=== PATIENT | female | born 1945 ===

== ENCOUNTER 2017-05-19 13:33 | Inpatient (IN) | payer MEDICARE, MEDICAID ==
--- NOTE | 2017-05-19 16:34 | RAD ---
HISTORY: psychiatric evaluation COMPARISON: 09/26/2015. FINDINGS: LUNGS: The lungs are well inflated. There is redemonstration of moderate pulmonary venous congestion. No focal consolidation. There is bibasilar atelectasis. PLEURA: No significant pleural effusion identified, no pneumothorax apparent. CARDIOVASCULAR: The heart is normal in size. There is prominent central vasculature. OSSEOUS STRUCTURES: No significant abnormalities. VISUALIZED UPPER ABDOMEN: Normal. OTHER FINDINGS: None. IMPRESSION: Persistent central vasculature and pulmonary venous congestion. No active pulmonary disease.
[2017-05-19 16:53] LABS: MEAN CELL VOLUME 92.8 fl (81.0-99.0); MEAN CORPUSCULAR HEMOGLOBIN 30.2 pg (27.0-31.0); MEAN CORPUSCULAR HGB CONC 32.6 g/dL (33.0-37.0); RBC 4.31 Mil/uL (3.80-5.20); RED CELL DISTRIBUTION WIDTH 14.5 % (11.5-14.5)
[2017-05-19 17:09] LABS: ALB/GLOB RATIO 1.1 (1.0-2.1); ALT/SGPT 23 U/L (9-52); AST/SGOT 25 U/L (14-36); BLOOD UREA NITROGEN 18 mg/dl (7-17); CALCIUM 9.8 mg/dL (8.4-10.2); GFR AFRICAN-AMERICAN 60; GFR NON-AFRICAN AMERICAN 49
[2017-05-19 17:12] LABS: BARBITURATES, UR NEGATIVE (NEGATIVE); BENZODIAZEPINES, UR NEGATIVE (NEGATIVE); OPIATES, UR NEGATIVE (NEGATIVE); PHENCYCLIDINE, UR NEGATIVE (NEGATIVE)
[2017-05-19 17:13] LABS: SQUAMOUS EPITHIAL 1 /hpf (0-5); URINE BACTERIA RARE (<OCC); URINE BILIRUBIN NEGATIVE (NEGATIVE); URINE BLOOD SMALL (NEGATIVE); URINE CLARITY CLEAR (Clear); URINE COLOR STRAW (YELLOW); URINE GLUCOSE (UA) NEG (Normal); URINE LEUKOCYTE ESTERASE TRACE Leu/uL (Negative); URINE PROTEIN NEGATIVE (NEGATIVE); URINE UROBILINOGEN 0.2-1.0 mg/dL (0.2-1.0)
[2017-05-19 17:14] LABS: VALPROIC ACID 10.9 ug/mL (50.0-100.0)
--- NOTE | 2017-05-19 17:18 | ED PDOC ---
HPI: Psych/Substance Abuse Time Seen by Provider: 05/19/17 14:07 Chief Complaint (Nursing): Psychiatric Evaluation Chief Complaint (Provider): Denies complaint History Per: Patient, Other History/Exam Limitations: no limitations Onset/Duration Of Symptoms: Days Additional Complaint(s): 71 yo female with history schizophrenia and bipolar sent for evaluation by therapist. PT states that she went to get a re-fill of medications before she left on vacation. When asked where she was going patient states all over the world and she is bringing her entire family because she has a lot of money. Pt also states she cooks a lot of home and can have everyone over for dinner. Son states she has been chain smoking and walking around the streets at night. Past Medical History Reviewed: Historical Data, Nursing Documentation, Vital Signs Vital Signs: Last Vital Signs Temp 98.8 F 05/19/17 13:38 Pulse 80 05/19/17 13:38 Resp 17 05/19/17 13:38 BP 135/96 H 05/19/17 13:38 Pulse Ox 99 05/19/17 13:38 - Medical History PMH: Bipolar Disorder, Depression, Hypothyroidism, Schizophrenia Denies: Asthma, Diabetes, Hepatitis, HIV, HTN, Chronic Kidney Disease, Seizures, Sexually Transmitted Disease - Surgical History Surgical History: Cholecystectomy - Family History Family History: States: Unknown Family Hx - Living Arrangements Living Arrangements: With Family - Social History Current smoker - smoking cessation education provided: No - Immunization History Hx Tetanus Toxoid Vaccination: No Hx Influenza Vaccination: No Hx Pneumococcal Vaccination: No - Home Medications Home Medications: Ambulatory Orders Medication Instructions Recorded Benztropine [Cogentin] 2 mg PO DAILY #0 tab 09/27/15 Divalproex [Depakote DR] 250 mg PO BID@1500,2300 #0 tcp 09/27/15 Levothyroxine [Synthroid] 112 mcg PO DAILY #0 tab 09/27/15 [place] Carbonate [[place] 300 mg PO BID #0 cap 09/27/15 Carbonate 300MG] Metoprolol Tartrate [Lopressor] 50 mg PO BID@0900,2100 #0 tab 09/27/15 Multivit-Min/Iron/Folic/Lutein 1 tab PO DAILY #0 tablet 09/27/15 [Centrum Silver Women Tablet] Rivaroxaban [Xarelto] 15 mg PO Q12 #42 tablet 09/27/15 Zolpidem [Ambien] 10 mg PO HS #0 tab 09/27/15 risperiDONE [RisperDAL Consta] 50 mg IM Q14D #0 syr 09/27/15 - Allergies Allergies/Adverse Reactions: Allergies Allergy/AdvReac Type Severity Reaction Status Date / Time Penicillins Allergy RASH Verified 05/19/17 13:38 Review of Systems ROS Statement: Except As Marked, All Systems Reviewed And Found Negative Constitutional: Negative for: Fever, Chills Psych: Negative for: Depression, Suicidal ideation, Withdrawal Physical Exam - Reviewed Nursing Documentation Reviewed: Yes Vital Signs Reviewed: Yes - Physical Exam Appears: Positive for: Well, Non-toxic, No Acute Distress Head Exam: Positive for: ATRAUMATIC, NORMAL INSPECTION, NORMOCEPHALIC Skin: Positive for: Normal Color, Warm, DRY Eye Exam: Positive for: Normal appearance ENT: Positive for: Normal ENT Inspection Neck: Positive for: Normal, Painless ROM Cardiovascular/Chest: Positive for: Regular Rate, Rhythm Respiratory: Positive for: Normal Breath Sounds. Negative for: Accessory Muscle Use, Respiratory Distress Gastrointestinal/Abdominal: Positive for: Normal Exam Back: Positive for: Normal Inspection Extremity: Positive for: Normal ROM Neurologic/Psych: Positive for: Alert, Oriented - Laboratory Results Result Diagrams: 05/19/17 16:35 05/19/17 16:35 - ECG O2 Sat by Pulse Oximetry: 99 Medical Decision Making Medical Decision Making: Pt evaluated by outside maintenance worker and is going to be screened by [facility]. PT ate dinner in ER. 1845 - Pt singing and dancing in ER. 1945 - Pt laying quietly in bed. No complaints. Endorsed pending [facility] at 1999. Disposition - Clinical Impression Clinical Impression: Encounter for psychiatric assessment - Patient ED Disposition Is Patient to be Admitted: Transfer of Care - Disposition Disposition: Transfer of Care Disposition Time: 20:00 Condition: STABLE Forms: [employer] (Moroccan)
--- NOTE | 2017-05-20 05:39 | ED PDOC ---
- Laboratory Results Result Diagrams: 05/19/17 16:35 05/19/17 16:35 - ECG O2 Sat by Pulse Oximetry: 98 - Progress ED Course And Treament: Case endorsed to food writer from Isac BONILLA [place] [facility] [place] Patient evaluated [place] [facility] [place], meets criteria for commitment pending available bed/transfer Disposition - Clinical Impression Clinical Impression: Schizophrenia - POA Present On Arrival: None - Disposition Disposition: Other Institution [place] Disposition Time: 06:00 Condition: STABLE Patient Signed Over To: Sofiya Santos Handoff Comments: pending available bed/[place] [facility]
--- NOTE | 2017-05-20 11:28 | CARD ---
APPROVED REPORT EKG Measurement Heart [id number] <Conclusion> Normal sinus rhythm Normal ECG
--- NOTE | 2017-05-20 13:33 | ED PDOC ---
- Laboratory Results Result Diagrams: 05/19/17 16:35 05/19/17 16:35 - ECG O2 Sat by Pulse Oximetry: 100 Medical Decision Making Medical Decision Making: received patient from Dr. Santos who is pending transfer to [facility]. Patient has voluntarily signed in to darci here. Will admit. Disposition Doctor Will See Patient In The: Hospital - Clinical Impression Clinical Impression: Schizophrenia - POA Present On Arrival: None - Disposition Disposition: Admitted as In-Patient Disposition Time: 13:33 Condition: STABLE
[2017-05-20 14:13] VITALS: O2SAT 98
[2017-05-20] MEDS ORDERED: Bismuth Subsalicylate 262 mg/15 ml Sus (240 ml) PO PRN (15:10)
[2017-05-20] MEDS ORDERED: Magnesium Hydroxide Susp 30 ml UD PO PRN (15:10)
[2017-05-20] MEDS ORDERED: Alum-Mag Hydrox-Simethicone Susp (30 mL) PO PRN (15:10)
[2017-05-20 15:44] VITALS: BMI 31.5
--- NOTE | 2017-05-20 17:10 | CP.PCM.CON ---
History of Present Illness - History of Present Illness History of Present Illness: 71 yo F pmhx of bipolar disorder, schizophrenia, hypothyroid and a fib presented to 3 voluntarily. She reports recent sad affect. Denies depression, SI/HI/AH/VH. Reports chronic lumbar discomfort, denies recent falls or trauma. Denies: CP/SOB/N/V/dysuria, constipation, diarrhea, CRISTINA, or dizziness. Ambulating well. PCP: Dr. Rosalind Rojas [facility] Psychiatrist: Dr. Duval phmhx: bipolar disorder, schizophrenia, hypothyroid and a fib Psurg: denies Famhx: none soc: lives with grandson; smokes 1 pack per day for 7 years; denies: alcohol or illicit drugs Meds: reviewed on [facility], Depakote, Resperdal, Congentin, Levothyroxine (pt denies taking), Xarelto, Ambien Allergies to PCN: anaphylaxis, rash Review of Systems - Constitutional Constitutional: As Per HPI Past Patient History - Past Medical History & Family History Past Medical History?: Yes - Past Social History Smoking Status: Heavy Smoker > 10 Cigarettes Daily Alcohol: None Drugs: Denies Home Situation {Lives}: With Family - CARDIAC Hx Cardiac Disorders: Yes - PULMONARY Hx Respiratory Disorders: No Hx Asthma: No - NEUROLOGICAL Hx Neurological Disorder: No Hx Seizures: No - HEENT Hx HEENT Problems: No - RENAL Hx Chronic Kidney Disease: No - ENDOCRINE/METABOLIC Hx Endocrine Disorders: No Hx Hypothyroidism: Yes - HEMATOLOGICAL/ONCOLOGICAL Hx Blood Disorders: No Hx Human Immunodeficiency Virus (HIV): No - INTEGUMENTARY Hx Dermatological Problems: No - MUSCULOSKELETAL/RHEUMATOLOGICAL Hx Musculoskeletal Disorders: No Hx Falls: No - GASTROINTESTINAL Hx Gastrointestinal Disorders: No - GENITOURINARY/GYNECOLOGICAL Hx Genitourinary Disorders: No Hx Sexually Transmitted Disorders: No - PSYCHIATRIC Hx Bipolar Disorder: Yes Hx Schizophrenia: Yes Hx Substance Use: No - SURGICAL HISTORY Hx Surgeries: Yes Hx Cholecystectomy: Yes - ANESTHESIA Hx Anesthesia: Yes Hx Anesthesia Reactions: No Hx Malignant Hyperthermia: No Meds Allergies/Adverse Reactions: Allergies Allergy/AdvReac Type Severity Reaction Status Date / Time Penicillins Allergy RASH Verified 05/19/17 13:38 - Medications Medications: Current Medications Acetaminophen (Tylenol 325mg Tab) 650 mg PO Q4 PRN PRN Reason: Pain, moderate (4-7) Al Hydrox/Mg Hydrox/Simethicone (Maalox Plus 30 Ml) 30 ml PO Q4 PRN PRN Reason: Dyspepsia Bismuth Subsalicylate (Pepto-Bismol) 524 mg PO Q4 PRN PRN Reason: Diarrhea Divalproex Sodium (Depakote Dr(*Bid*)) 250 mg PO Q12 OCTAVIO Lorazepam (Ativan) 0.5 mg PO HS PRN PRN Reason: Insomnia Stop: 06/03/17 15:11 Lorazepam (Ativan) 0.5 mg PO Q6 PRN PRN Reason: Anixety/Agitation Stop: 06/03/17 15:11 Magnesium Hydroxide (Milk Of Magnesia) 30 ml PO HS PRN PRN Reason: Constipation Risperidone (Risperdal Tab) 0.5 mg PO Q12 OCTAVIO Physical Exam - Head Exam Head Exam: ATRAUMATIC - Eye Exam Eye Exam: EOMI - Respiratory Exam Respiratory Exam: Clear to Auscultation Bilateral, NORMAL BREATHING PATTERN. absent: Wheezes - Cardiovascular Exam Cardiovascular Exam: REGULAR RHYTHM, +S1, +S2 - GI/Abdominal Exam GI & Abdominal Exam: Normal Bowel Sounds, Soft. absent: Tenderness - Extremities Exam Extremities exam: Positive for: full ROM. Negative for: calf tenderness - Back Exam Back exam: absent: CVA tenderness (L), CVA tenderness (R) - Neurological Exam Neurological exam: Alert, CN II-XII Intact, Normal Gait, Oriented x3 - Psychiatric Exam Psychiatric exam: Normal Affect, Normal Mood Results - Vital Signs Recent Vital Signs: Last Vital Signs Temp 98.2 F 05/20/17 16:38 Pulse 71 05/20/17 16:38 Resp 19 05/20/17 16:38 BP 132/71 05/20/17 16:38 Pulse Ox 98 05/20/17 14:12 - Labs Result Diagrams: 05/19/17 16:35 05/19/17 16:35 Labs: Laboratory Results - last 24 hr 05/19/17 05/19/17 05/19/17 16:35 16:35 16:37 Sodium 148 Potassium 3.9 Chloride 109 H Carbon Dioxide 27 Anion Gap 16 BUN 18 H Creatinine 1.1 Est GFR ( Amer) 60 Est GFR (Non-Af Amer) 49 Random Glucose 74 Calcium 9.8 Total Bilirubin 0.7 AST 25 ALT 23 Alkaline Phosphatase 67 Total Protein 7.8 Albumin 4.0 Globulin 3.8 Albumin/Globulin Ratio 1.1 Urine Color Urine Clarity Urine pH Ur Specific Headrick Urine Protein Urine Glucose (UA) Urine Ketones Urine Blood Urine Nitrate Urine Bilirubin Urine Urobilinogen Ur Leukocyte Esterase Urine RBC (Auto) Urine Microscopic WBC Ur Squamous Epith Cells Urine Bacteria Urine Opiates Screen Negative Urine Methadone Screen Negative Ur Barbiturates Screen Negative Valproic Acid 10.9 L Ur Phencyclidine Scrn Negative Ur Amphetamines Screen Negative U Benzodiazepines Scrn Negative U Oth Cocaine Metabols Negative U Cannabinoids Screen Negative Alcohol, Quantitative < 10 05/19/17 16:37 Sodium Potassium Chloride Carbon Dioxide Anion Gap BUN Creatinine Est GFR ( Amer) Est GFR (Non-Af Amer) Random Glucose Calcium Total Bilirubin AST ALT Alkaline Phosphatase Total Protein Albumin Globulin Albumin/Globulin Ratio Urine Color Straw Urine Clarity Clear Urine pH 6.0 Ur Specific Headrick 1.006 Urine Protein Negative Urine Glucose (UA) Neg Urine Ketones Negative Urine Blood Small Urine Nitrate Negative Urine Bilirubin Negative Urine Urobilinogen 0.2-1.0 Ur Leukocyte Esterase Trace Urine RBC (Auto) 5 H Urine Microscopic WBC 6 H Ur Squamous Epith Cells 1 Urine Bacteria Rare Urine Opiates Screen Urine Methadone Screen Ur Barbiturates Screen Valproic Acid Ur Phencyclidine Scrn Ur Amphetamines Screen U Benzodiazepines Scrn U Oth Cocaine Metabols U Cannabinoids Screen Alcohol, Quantitative Assessment & Plan - Assessment and Plan (Free Text) Plan: 71 yo F pmhx of bipolar disorder, schizophrenia, hypothyroid and a fib presented to voluntarily possibly 2/2 to [facility]. Bipolar schizophrenia: - Currently managed by psych - f/u TSH/FT4 Hypothyroid: - Pt denies taking levothyroxine - f/u TSH/FT4; may restart levothyroxine 100 mcg - monitor vitals Afib - continue home meds xarelto - CXR: persistent central vasculature and pulmonary venous congestion; No active pulmonary disease - EKG: NSR; normal - Continue to monitor DVT prophylaxis - pt ambulating - scd boots
--- NOTE | 2017-05-20 17:47 | PCM.BM ---
<Sandee Ellis - Last Filed: 05/20/17 17:45> Treatment Plan Problems - Problems identified on initial assessmt Altered Sleep Patterns Date Initiated: 05/20/17 Time Initiated: 17:46 Assessment reference: HP, NA Status: Active Medication nonadherence Date Initiated: 05/20/17 Time Initiated: 17:51 Assessment reference: HP, NA Status: Active Treatment assets and liabiliti Patient Assests: adapts well, cooperative, good support system, cognitively intact Patient Liabilities: medical problems, other (mental disorder) - Milieu Protocol Maintain good personal hygiene: daily Encourage regular showers, daily Remind patient to perform daily oral care, daily Assist patient to perform ADL's Conduct patient checks and document Observation sheet: Q15 minutes Maintain personal safety: every shift Educate patient to report safety concerns to staff, every shift Monitor environment for contraband/sharps Medication safety: Monitor for expected outcome, potential side effects: every shift, Assess barriers to learning: every shift, Assess readiness for medication education: every shift <Mili Esteves - Last Filed: 05/21/17 09:53> - Diagnosis (1) Schizoaffective disorder Status: Acute Interventions: Medication management, Individual and group therapy, Psychoeducation 05/21/17 09:53 <Lulu Connors - Last Filed: 05/22/17 15:32> Family Contact Family contact: Patient agrees to contact, Family has been contacted by patient , Patient declines to allow family contact at present Family contact name: Libon - son Family contacted how many times per week?: 2 Family contact comment: [phone] - Outside Agency [facility] Agency contact name: Dr. Junito MD Agency contact number: [phone] - Goals for Treatment Patient goals for treatment: Pt to be encouraged to attend activity and clinical groups 3-5x per week to decrease symptoms of paranoia, delusions and employ reality testing. Pt to be encouraged to participate in group milieu to develop coping skills to reduce psychiatric hospitalizations and further decompensation. Coordinate discharge resources needs by providing referral for psychiatric treatment follow up in the community. Discharge/Continuing Care - Education Needs Education Needs: Family Medication, Family Coping Skills, Family Placement options, Family Community resources, Family Activities of Daily Living, Family Nutrition, Family Health Practices/Safety, Family Personal Hygiene/Grooming, Family Aftercare Safety Plan, Patient Medication, Patient Coping Skills, Patient Placement options, Patient Community resources, Patient Activities of Daily Living, Patient Nutrition, Patient Health Practices/Safety, Patient Personal Hygiene/Grooming, Patient Aftercare Safety Plan - Discharge Discharge Criteria: Tolerates medication w/o severe side effects, Free of paranoid thoughts, Free of agitation, Normal sleep pattern, Ability to care for self, Reduction of target symptoms Discharge to:: Home - Additional Comments 05/22/17 15:25 Pt seen and discussed in team meeting. Reason for hospitalization reviewed and discussed. Pt is tangential and believes she has special rhoades. Pt believes she can see the future and talk to people. Pt is also paranoid; believes that people are breaking into her apartment at night time and stealing her food and medications. Pt's social and medical issues reviewed. Pt's medications reviewed. Tx plan reviewed and discussed with pt Pt agreeable to current tx plan. SW to continue to follow case. - Treatment Team Participation Discussed with Family/SO: Yes (Via telephone) Was Patient/Family/SO present at Treatment Team Meeting: Yes
[2017-05-20] MEDS: Divalproex 250 mg DR(BID formulation) PO SCH (21:01)
[2017-05-21 08:10] LABS: ALB/GLOB RATIO 1.1 (1.0-2.1); ALBUMIN 4.3 g/dL (3.5-5.0); ALT/SGPT 34 U/L (9-52); AST/SGOT 27 U/L (14-36); BLOOD UREA NITROGEN 19 mg/dl (7-17); GFR AFRICAN-AMERICAN > 60; GFR NON-AFRICAN AMERICAN 55; HDL CHOLESTEROL 40 MG/DL (30-70)
[2017-05-21 08:20] LABS: LDL CHOLESTEROL 59 mg/dL (0-129)
[2017-05-21 08:24] LABS: T4 9.69 ug/dl (5.5-11.0)
[2017-05-21] MEDS: Divalproex 250 mg DR(BID formulation) PO SCH (08:25)
--- NOTE | 2017-05-21 10:04 | PCM.PSYCH ---
Initial Psychiatric Evaluation - Initial Psychiatric Evaluation Type of Admission: Voluntary Legal Status: Capacity Chief Complaint (in patient's own words): "My doctor thinks I need to be here." Patient's Reaction to Hospitalization: HPI: 71 yo female w/ h/o schizoaffective disorder, treated by Dr. Duval at the [facility], referred from the clinic due to worsening psychosis, barb, lack of sleep, beliefs that she can communicate with the , paranoia that someone wants to break in her home and sexually assault her, belief that someone is mistaking her for her daughter, seeing "shadows" and beliefs that she has premonitions and can determine if a person is "good" or "bad" just by meeting them in the context of likely non-compliance with medications. PPHx: Multiple past psychiatric admissions, currently being treated with [place] , Depakote, Risperdal and Cogentin at the [facility] w/ Dr. Duval. H/o suicide attempt in 1975 by overdose on alcohol and pills. On VPA 10.9 and L 0.3 PMHx: Hypothyroid, AFib, DVT (on Xarelto) PSurgHx: Cholecystectomy SHx: Lives w/ her son and [id number], +smoke 1.5 ppd, no drugs/etoh; unemployed ALL: PCN (rash) Current Medications: Active Medications Generic Name Dose Route Start Last Admin Trade Name Freq PRN Reason Stop Dose Admin Acetaminophen 650 mg 05/20/17 15:10 Tylenol 325mg Tab PO Q4 PRN Pain, moderate (4-7) Al Hydrox/Mg Hydrox/Simethicone 30 ml 05/20/17 15:10 Maalox Plus 30 Ml PO Q4 PRN Dyspepsia Benztropine Mesylate 0.5 mg 05/21/17 09:00 05/21/17 08:24 Cogentin PO 0.5 mg DAILY OCTAVIO Administration Bismuth Subsalicylate 524 mg 05/20/17 15:10 Pepto-Bismol PO Q4 PRN Diarrhea Divalproex Sodium 250 mg 05/20/17 21:00 05/21/17 08:25 Depez Cole(*Bid*) PO 250 mg Q12 OCTAVIO Administration [place] Carbonate 300 mg 05/20/17 21:00 05/21/17 08:24 [place] Carbonate 300mg PO 300 mg Q12 OCTAVIO Administration Lorazepam 0.5 mg 05/20/17 15:10 Ativan PO 06/03/17 15:11 HS PRN Insomnia Lorazepam 0.5 mg 05/20/17 15:10 Ativan PO 06/03/17 15:11 Q6 PRN Anixety/Agitation Magnesium Hydroxide 30 ml 05/20/17 15:10 Milk Of Magnesia PO HS PRN Constipation Nicotine 1 patch 05/21/17 09:00 05/21/17 08:25 Nicoderm Cq TD 1 patch DAILY OCTAVIO Administration Risperidone 0.5 mg 05/20/17 21:00 05/21/17 08:25 Risperdal Tab PO 0.5 mg Q12 OCTAVIO Administration Rivaroxaban 20 mg 05/21/17 09:00 05/21/17 08:24 Xarelto PO 20 mg DAILY OCTAVIO Administration Protocol Zolpidem Tartrate 5 mg 05/20/17 18:17 Ambien PO HS PRN Insomnia Past Psychiatric History - Past Psychiatric History Previous Treatment History: Partial Hospital Pertinent Medical Hx (Current Medical&Sleep Prob, Allergies): Allergies Allergy/AdvReac Type Severity Reaction Status Date / Time Penicillins Allergy RASH Verified 05/19/17 13:38 Benztropine [Cogentin] 0.5 mg PO DAILY 05/20/17 Divalproex [Depakote DR (*BID*)] 250 mg PO Q12 05/20/17 [place] Carbonate [[facility] Carbonate 300MG] 300 mg PO Q12 05/20/17 Risperidone [Risperdal] 0.5 mg PO Q12 05/20/17 Rivaroxaban [Xarelto] 20 mg PO DAILY 05/20/17 Zolpidem [Ambien] 10 mg PO HS PRN 05/20/17 Review of Systems - Psychiatric Psychiatric: Abnormal Sleep Pattern, Behavioral Changes, Memory Loss, Mood Swings, Paranoia, Visual Hallucinations, Other (Delusions, Barb) Mental Status Examination - Personal Presentation Personal Presentation: Looks stated age - Affect Affect: Broad - Motor Activity Motor Activity: Calm - Reliability in Providing Information Reliability in Providing Information: Fair - Speech Speech: Tangential, Coherent - Mood Mood: Euphoric - Formal Thought Process Formal Thought Process: Delusions, Paranoia, Loosening of associations - Hallucinations/Delusions Additional comments: Denies current AH/VH - Obsessions/Compulsions Obsessions: No Compulsions: No - Cognitive Functions Orientation: Person, Place, Situation, Time Sensorium: Alert Attention/Concentration: Attentive Estimate of Intelligence: Average Judgement: Intact, as evidence by: Insight regarding need for hospitalization Memory: Recent intact, as evidence by: Ability to recall events of the day - Risk Risk: Diminished functioning - Strength & Assets Inventory Strength & Assets Inventory: Cooperative DSM 5 DX - DSM 5 DSM 5 Diagnosis: Schizoaffective Disorder - Recommended/Plan of Treatment Treatment Recommendations and Plan of Treatment: Schizoaffective Disorder -Admit to psychiatry -Hold Depakote -[place] 300 mg PO Q12; will follow-up Li level -Increase Risperdal to 0.5 mg PO AM/ 1 mg PO HS -Continue Cogentin 0.5 mg PO Q12 -Psychology consult to evaluate neurocognitive function -Medicine consult -Psychoeducation -Nicotine patch -Disposition planning Projected ELOS: 5-9 days Discharge Plan and Discharge Criteria: Discharge when patient is psychiatrically stable - Smoking Cessation Smoking Cessation Initiated: Yes
--- NOTE | 2017-05-22 12:43 | PCM.PYCHPN ---
Psychiatric Progress Note - Psychiatric Progress Note Patient seen today, length of contact: Patient evaluated, case discussed with team, chart reviewed Patient Chief Complaint: "My doctor thinks I need to be here." Problems Identified/Issues Discussed: Patient continues to be tangential at times, euphoric w/ beliefs that she has special abilities, such as talking to the . She is also paranoid that drug deals are trying to break into her home to steal her food and medications. She denied acute AH/VH/SI/HI. She has been compliant with medications and denies adverse effects. Entry Level Civil Engineer spoke w/ patient's son, [place], who confirmed that patient has decompensated psychiatrically, that she presents acutely manic and psychotic. We discussed the medication changes. Medication Change: Yes (Increase Risperdal) Medical Record Reviewed: Yes Consults ordered or reviewed: Medicine consult Mental Status Examination - Cognitive Function Orientation: Person, Place, Situation, Time Attention: WNL Concentration: WNL Fund of Knowledge: WNL Decription of patient's judgement and insights: Improving I/J - Mood Mood: Euphoric - Affect Affect: Broad - Formal Thought Process Formal Thought Process: Delusions, Paranoia, Loosening of associations Psychotic Thoughts and Behaviors: +Paranoia/delusions - Suicidal Ideation Suicidal Ideation: No - Homicidal Ideation Homicidal Ideation: No Goal/Treatment Plan - Goal/Treatment Plan Need for Continued Stay: Remain at risks for inpatient hospitalization, Discharge may exacerbated symptoms Progress Toward Problem(s) and Goals/Treatment Plan: Schizoaffective Disorder -Admit to psychiatry -Hold Depakote -Continue [place] 300 mg PO Q12; will follow-up Li level -Increase Risperdal to 1 mg PO Q12 -Continue Cogentin 0.5 mg PO Q12 -Medicine consult -Psychoeducation -Nicotine patch -Disposition planning Estimated Date of D/C: 05/28/17 - Smoking Cessation Smoking Cessation Initiated: Yes
[2017-05-22 17:28] LABS: FOLATE 5.8 ng/mL
[2017-05-23] MEDS: Levothyroxine 25 MCG TAB PO SCH (05:57)
--- NOTE | 2017-05-23 08:49 | PCM.PYCHPN ---
Psychiatric Progress Note - Psychiatric Progress Note Patient seen today, length of contact: Patient evaluated, case discussed with team, chart reviewed Patient Chief Complaint: "My doctor thinks I need to be here." Problems Identified/Issues Discussed: Patient is calmer, more organized, and more linear on conversation. She continues to have paranoia and delusional beliefs. She has been compliant with the medications without adverse effects. Medication Change: No Medical Record Reviewed: Yes Consults ordered or reviewed: Medicine consult Mental Status Examination - Cognitive Function Orientation: Person, Place, Situation, Time Memory: Intact Attention: WNL Concentration: WNL Fund of Knowledge: WNL Decription of patient's judgement and insights: Improving I/J - Mood Mood: Neutral - Affect Affect: Broad - Formal Thought Process Formal Thought Process: Delusions, Paranoia, Loosening of associations Psychotic Thoughts and Behaviors: +Paranoia/delusions - Suicidal Ideation Suicidal Ideation: No - Homicidal Ideation Homicidal Ideation: No Goal/Treatment Plan - Goal/Treatment Plan Need for Continued Stay: Remain at risks for inpatient hospitalization, Discharge may exacerbated symptoms Progress Toward Problem(s) and Goals/Treatment Plan: Schizoaffective Disorder -Continue [place] 300 mg PO Q12; will follow-up Li level -Continue Risperdal 1 mg PO Q12 -Continue Cogentin 0.5 mg PO Q12 -Medicine consult -Psychoeducation -Nicotine patch -Case discussed w/ patient's son -Disposition planning Estimated Date of D/C: 05/28/17
--- NOTE | 2017-05-23 13:32 | CP.PCM.PCO ---
<Lilliam Mark - Last Filed: 05/23/17 13:27> Summary - Summary of Event Summary of Event: S:no overnight event, feeling well. O:Gen: no acute distress, VSS A/P: management per psych, doing well on synthroid <Natalee Driscoll - Last Filed: 05/24/17 08:37> Attending/Attestation - Attestation I have personally seen and examined this patient.: Yes I have fully participated in the care of the patient.: Yes I have reviewed all pertinent clinical information: Yes
[2017-05-24] MEDS: Levothyroxine 25 MCG TAB PO SCH (06:11)
--- NOTE | 2017-05-24 11:22 | PCM.PYCHPN ---
Psychiatric Progress Note - Psychiatric Progress Note Patient seen today, length of contact: Patient evaluated, case discussed with team, chart reviewed Patient Chief Complaint: "My doctor thinks I need to be here." Problems Identified/Issues Discussed: Patient continues to be calmer, more organized, and more linear on conversation. She does sing spontaneously at times, but is not a behavioral disturbance. She is less paranoid. She has been compliant with the medications without adverse effects. Medication Change: No Medical Record Reviewed: Yes Consults ordered or reviewed: Medicine consult Mental Status Examination - Cognitive Function Orientation: Person, Place, Situation, Time Memory: Intact Attention: WNL Concentration: WNL Fund of Knowledge: WNL Decription of patient's judgement and insights: Improving I/J - Mood Mood: Neutral - Affect Affect: Broad - Formal Thought Process Formal Thought Process: Paranoia, Loosening of associations Psychotic Thoughts and Behaviors: +Paranoia - Suicidal Ideation Suicidal Ideation: No - Homicidal Ideation Homicidal Ideation: No Goal/Treatment Plan - Goal/Treatment Plan Need for Continued Stay: Remain at risks for inpatient hospitalization, Discharge may exacerbated symptoms Progress Toward Problem(s) and Goals/Treatment Plan: Schizoaffective Disorder -Continue [place] 300 mg PO Q12; will follow-up Li level -Continue Risperdal 1 mg PO Q12 -Continue Cogentin 0.5 mg PO Q12 -Medicine consult -Psychoeducation -Nicotine patch -Case discussed w/ patient's son -Disposition planning Estimated Date of D/C: 05/28/17
[2017-05-25] MEDS: Levothyroxine 25 MCG TAB PO SCH (06:09)
[2017-05-25 07:38] LABS: HEMOGLOBIN 13.8 g/dL (12.0-16.0); MEAN CORPUSCULAR HEMOGLOBIN 30.2 pg (27.0-31.0); MEAN CORPUSCULAR HGB CONC 32.9 g/dL (33.0-37.0); RBC 4.58 Mil/uL (3.80-5.20); RED CELL DISTRIBUTION WIDTH 14.3 % (11.5-14.5); WHITE BLOOD COUNT 7.4 K/uL (4.8-10.8)
[2017-05-25 07:56] LABS: ALB/GLOB RATIO 1.1 (1.0-2.1); ALBUMIN 4.3 g/dL (3.5-5.0); ALT/SGPT 28 U/L (9-52); AST/SGOT 23 U/L (14-36); BLOOD UREA NITROGEN 24 mg/dl (7-17); CALCIUM 10.5 mg/dL (8.4-10.2); GFR AFRICAN-AMERICAN > 60; GFR NON-AFRICAN AMERICAN 55
--- NOTE | 2017-05-25 09:24 | CP.PCM.CON ---
History of Present Illness - History of Present Illness History of Present Illness: Pt is a 71 year old female admitted to the geropsych unit of [facility]. Pt administered the DRS. On the DRS, pt scored an overall score of 95>. Pt evidenced deficits in all areas. She scored in the Deficient Range on Attention , Construction, Conceptualization, Memory and Initiation tasks. Pt had difficulty processing instructions on evaluation, required redirection and complex material was difficult for her to comprehend. Overall 95 Attention 22 Construction 2 Conceptualization 24 Initiation 24 Memory 12 Supervision for complex activities reccomended. Thank you for this referral, Dr. Walker Past Patient History - Past Medical History & Family History Past Medical History?: Yes - Past Social History Smoking Status: Heavy Smoker > 10 Cigarettes Daily Alcohol: None Drugs: Denies Home Situation {Lives}: With Family - CARDIAC Hx Cardiac Disorders: Yes - PULMONARY Hx Respiratory Disorders: No Hx Asthma: No - NEUROLOGICAL Hx Neurological Disorder: No Hx Seizures: No - HEENT Hx HEENT Problems: No - RENAL Hx Chronic Kidney Disease: No - ENDOCRINE/METABOLIC Hx Endocrine Disorders: No Hx Hypothyroidism: Yes - HEMATOLOGICAL/ONCOLOGICAL Hx Blood Disorders: No Hx Human Immunodeficiency Virus (HIV): No - INTEGUMENTARY Hx Dermatological Problems: No - MUSCULOSKELETAL/RHEUMATOLOGICAL Hx Musculoskeletal Disorders: No Hx Falls: No - GASTROINTESTINAL Hx Gastrointestinal Disorders: No - GENITOURINARY/GYNECOLOGICAL Hx Genitourinary Disorders: No Hx Sexually Transmitted Disorders: No - PSYCHIATRIC Hx Bipolar Disorder: Yes Hx Schizophrenia: Yes Hx Substance Use: No - SURGICAL HISTORY Hx Surgeries: Yes Hx Cholecystectomy: Yes - ANESTHESIA Hx Anesthesia: Yes Hx Anesthesia Reactions: No Hx Malignant Hyperthermia: No Meds Allergies/Adverse Reactions: Allergies Allergy/AdvReac Type Severity Reaction Status Date / Time Penicillins Allergy RASH Verified 05/19/17 13:38 - Medications Medications: Current Medications Acetaminophen (Tylenol 325mg Tab) 650 mg PO Q4 PRN PRN Reason: Pain, moderate (4-7) Al Hydrox/Mg Hydrox/Simethicone (Maalox Plus 30 Ml) 30 ml PO Q4 PRN PRN Reason: Dyspepsia Benztropine Mesylate (Cogentin) 0.5 mg PO Q12 [facility] Last Admin: 05/25/17 08:32 Dose: 0.5 mg Bismuth Subsalicylate (Pepto-Bismol) 524 mg PO Q4 PRN PRN Reason: Diarrhea Levothyroxine Sodium (Synthroid) 25 mcg PO DAILY@0630 [facility] Last Admin: 05/25/17 06:09 Dose: 25 mcg [place] Carbonate ([place] Carbonate 300mg) 300 mg PO Q12 [facility] Last Admin: 05/25/17 08:33 Dose: 300 mg Lorazepam (Ativan) 0.5 mg PO HS PRN PRN Reason: Insomnia Stop: 06/03/17 15:11 Lorazepam (Ativan) 0.5 mg PO Q6 PRN PRN Reason: Anixety/Agitation Stop: 06/03/17 15:11 Magnesium Hydroxide (Milk Of Magnesia) 30 ml PO HS PRN PRN Reason: Constipation Nicotine (Nicoderm Cq) 1 patch TD DAILY [facility] Last Admin: 05/25/17 08:33 Dose: 1 patch Risperidone (Risperdal Tab) 1 mg PO Q12 [facility] Last Admin: 05/25/17 08:33 Dose: 1 mg Rivaroxaban (Xarelto) 20 mg PO DAILY [facility] PRN Reason: Protocol Last Admin: 05/25/17 08:33 Dose: 20 mg Results - Vital Signs Recent Vital Signs: Last Vital Signs Temp 97.3 F L 05/25/17 06:00 Pulse 82 05/25/17 06:00 Resp 19 05/25/17 06:00 BP 119/64 05/25/17 06:00 Pulse Ox 98 05/20/17 14:12 - Labs Result Diagrams: 05/25/17 06:01 05/25/17 06:01 Labs: Laboratory Results - last 24 hr 05/25/17 05/25/17 06:01 06:01 WBC 7.4 RBC 4.58 Hgb 13.8 Hct 42.1 MCV 92.0 MCH 30.2 MCHC 32.9 L RDW 14.3 Plt Count 193 Sodium 148 Potassium 4.7 Chloride 105 Carbon Dioxide 26 Anion Gap 22 H BUN 24 H Creatinine 1.0 Est GFR ( Amer) > 60 Est GFR (Non-Af Amer) 55 Random Glucose 94 Calcium 10.5 H Total Bilirubin 0.6 AST 23 ALT 28 Alkaline Phosphatase 84 Total Protein 8.2 Albumin 4.3 Globulin 3.9 Albumin/Globulin Ratio 1.1
--- NOTE | 2017-05-25 10:43 | PCM.PYCHPN ---
Psychiatric Progress Note - Psychiatric Progress Note Patient seen today, length of contact: Patient evaluated, case discussed with team, chart reviewed Patient Chief Complaint: "My doctor thinks I need to be here." Problems Identified/Issues Discussed: Patient is irritable towards investment underwriter. She states that he does not believe she needs to be in the hospital for more days because she feels that she is doing well. We discussed the importance of compliance with treatment and medications. She is less paranoid and more organized on conversation. Medication Change: No Medical Record Reviewed: Yes Consults ordered or reviewed: Medicine consult Psychology consult Pt is a 71 year old female admitted to the geropsych unit of [facility]. Pt administered the DRS. On the DRS, pt scored an overall score of 95>. Pt evidenced deficits in all areas. She scored in the Deficient Range on Attention , Construction, Conceptualization, Memory and Initiation tasks. Pt had difficulty processing instructions on evaluation, required redirection and complex material was difficult for her to comprehend. Overall 95 Attention 22 Construction 2 Conceptualization 24 Initiation 24 Memory 12 Supervision for complex activities reccomended. Thank you for this referral, Dr. Walker Mental Status Examination - Cognitive Function Orientation: Person, Place, Situation, Time Memory: Intact Attention: WNL Concentration: WNL Fund of Knowledge: WNL Decription of patient's judgement and insights: Improving I/J - Mood Mood: Neutral - Affect Affect: Broad - Formal Thought Process Formal Thought Process: Paranoia, Loosening of associations Psychotic Thoughts and Behaviors: +Paranoia - Suicidal Ideation Suicidal Ideation: No - Homicidal Ideation Homicidal Ideation: No Goal/Treatment Plan - Goal/Treatment Plan Need for Continued Stay: Remain at risks for inpatient hospitalization, Discharge may exacerbated symptoms Progress Toward Problem(s) and Goals/Treatment Plan: Schizoaffective Disorder -Continue [place] 300 mg PO Q12; will follow-up Li level -Continue Risperdal 1 mg PO Q12 -Continue Cogentin 0.5 mg PO Q12 -Medicine consult -Psychoeducation -Nicotine patch -Psychology consult appreciated -Case discussed w/ patient's son -Disposition planning Estimated Date of D/C: 05/28/17
[2017-05-26] MEDS: Levothyroxine 25 MCG TAB PO SCH (06:04)
--- NOTE | 2017-05-26 09:12 | CP.PCM.PN ---
Subjective - Date & Time of Evaluation Date of Evaluation: 05/26/17 Time of Evaluation: 08:00 - Subjective Subjective: Pt was seen and examined at bedside. Denied significant overnight events; Denies CP/dizziness/palpitations/sob/n/v. Tolerating PO diet. Reports good mood and enjoying singing happy, beverly songs. Objective - Vital Signs/Intake and Output Vital Signs (last 24 hours): Temp Pulse Resp BP Pulse Ox 98.1 F 82 19 126/73 98 05/26/17 05:58 05/26/17 05:58 05/26/17 05:58 05/26/17 05:58 05/20/17 14:12 - Medications Medications: Current Medications Acetaminophen (Tylenol 325mg Tab) 650 mg PO Q4 PRN PRN Reason: Pain, moderate (4-7) Al Hydrox/Mg Hydrox/Simethicone (Maalox Plus 30 Ml) 30 ml PO Q4 PRN PRN Reason: Dyspepsia Benztropine Mesylate (Cogentin) 0.5 mg PO Q12 [facility] Last Admin: 05/26/17 08:46 Dose: 0.5 mg Bismuth Subsalicylate (Pepto-Bismol) 524 mg PO Q4 PRN PRN Reason: Diarrhea Levothyroxine Sodium (Synthroid) 25 mcg PO DAILY@0630 [facility] Last Admin: 05/26/17 06:04 Dose: 25 mcg [place] Carbonate ([place] Carbonate 300mg) 300 mg PO Q12 [facility] Last Admin: 05/26/17 08:48 Dose: 300 mg Lorazepam (Ativan) 0.5 mg PO HS PRN PRN Reason: Insomnia Stop: 06/03/17 15:11 Lorazepam (Ativan) 0.5 mg PO Q6 PRN PRN Reason: Anixety/Agitation Stop: 06/03/17 15:11 Magnesium Hydroxide (Milk Of Magnesia) 30 ml PO HS PRN PRN Reason: Constipation Metoprolol Tartrate (Lopressor) 50 mg PO Q12 [facility] Nicotine (Nicoderm Cq) 1 patch TD DAILY [facility] Last Admin: 05/26/17 08:46 Dose: 1 patch Risperidone (Risperdal Tab) 1 mg PO Q12 [facility] Last Admin: 05/26/17 08:48 Dose: 1 mg Rivaroxaban (Xarelto) 20 mg PO DAILY [facility] PRN Reason: Protocol Last Admin: 05/26/17 08:47 Dose: 20 mg - Labs Labs: 05/25/17 06:01 05/25/17 06:01 - Constitutional Appears: Well, No Acute Distress - Eye Exam Eye Exam: EOMI - Neck Exam Neck Exam: Full ROM - Respiratory Exam Respiratory Exam: Clear to Ausculation Bilateral, NORMAL BREATHING PATTERN. absent: Wheezes - Cardiovascular Exam Cardiovascular Exam: Irregular Rhythm, +S1, +S2 - GI/Abdominal Exam GI & Abdominal Exam: Soft, Normal Bowel Sounds. absent: Tenderness - Extremities Exam Extremities Exam: absent: Calf Tenderness - Neurological Exam Neurological Exam: Alert, Awake, CN II-XII Intact, Normal Gait, Oriented x3 - Psychiatric Exam Psychiatric exam: Normal Affect, Normal Mood Assessment and Plan - Assessment and Plan (Free Text) Plan: 71 yo F pmhx of bipolar disorder, schizophrenia, hypothyroid and a fib . Schizoaffective disorder - Currently managed by psych Hypothyroid: - Pt denies taking levothyroxine - f/u TSH/FT4: 13.80/9.69: restarted levothyroxine 25 mcg - monitor vitals Afib - continue home meds xarelto - CXR: persistent central vasculature and pulmonary venous congestion; No active pulmonary disease - EK05/26/2017: Afib with RVR - Checked meds on ECW: Metoprolol succinate 50 mg PO qd for rate control - Continue to monitor Smoking cessation - pt agreed for nicotine patch DVT prophylaxis - pt ambulating - scd boots
--- NOTE | 2017-05-26 09:17 | CARD ---
APPROVED REPORT EKG Measurement Heart [id number] <Conclusion> Atrial fibrillation with rapid ventricular response Abnormal ECG
--- NOTE | 2017-05-26 10:26 | PCM.PYCHPN ---
Psychiatric Progress Note - Psychiatric Progress Note Patient seen today, length of contact: Patient evaluated, case discussed with team, chart reviewed Patient Chief Complaint: "My doctor thinks I need to be here." Problems Identified/Issues Discussed: Patient is improving clinically, she is calmer, less irritable and not expressing any paranoia. She is requesting to be discharged from the hospital because she states that she is feeling better. We discussed likely discharged and the importance of compliance with treatment and medications. No adverse effects to medications reported. Diagnostic Results: Li 0.8 on 05/26/17 Medication Change: No Medical Record Reviewed: Yes Consults ordered or reviewed: Medicine consult Psychology consult Pt is a 71 year old female admitted to the geropsych unit of [facility]. Pt administered the DRS. On the DRS, pt scored an overall score of 95>. Pt evidenced deficits in all areas. She scored in the Deficient Range on Attention , Construction, Conceptualization, Memory and Initiation tasks. Pt had difficulty processing instructions on evaluation, required redirection and complex material was difficult for her to comprehend. Overall 95 Attention 22 Construction 2 Conceptualization 24 Initiation 24 Memory 12 Supervision for complex activities reccomended. Thank you for this referral, Dr. Walker Mental Status Examination - Cognitive Function Orientation: Person, Place, Situation, Time Memory: Intact Attention: WNL Concentration: WNL Fund of Knowledge: WNL Decription of patient's judgement and insights: Improving I/J - Mood Mood: Neutral - Affect Affect: Broad - Speech Speech: Appropriate - Formal Thought Process Formal Thought Process: Loosening of associations Psychotic Thoughts and Behaviors: Denies acute paranoia - Suicidal Ideation Suicidal Ideation: No - Homicidal Ideation Homicidal Ideation: No Goal/Treatment Plan - Goal/Treatment Plan Need for Continued Stay: Discharge may exacerbated symptoms Progress Toward Problem(s) and Goals/Treatment Plan: Schizoaffective Disorder; Dementia -Continue [place] 300 mg PO Q12; Li 0.8 on 05/26/17 -Continue Risperdal 1 mg PO Q12 -Continue Cogentin 0.5 mg PO Q12 -Patient unwilling to take medications for dementia -Medicine consult appreciated -Psychoeducation -Nicotine patch -Psychology consult appreciated -Case discussed w/ patient's son -Disposition planning Estimated Date of D/C: 05/27/17 - Smoking Cessation Smoking Cessation Initiated: Yes
[2017-05-27] MEDS: Levothyroxine 25 MCG TAB PO SCH (06:15)
[2017-05-27] MEDS: Metoprolol Succinate 50 mg XL Tab PO SCH (08:40)
--- NOTE | 2017-05-27 09:37 | PCM.PYCHPN ---
Psychiatric Progress Note - Psychiatric Progress Note Patient seen today, length of contact: Patient evaluated, case discussed with team, chart reviewed Patient Chief Complaint: "My doctor thinks I need to be here." Problems Identified/Issues Discussed: Patient had some irritability yesterday and mild paranoia and will willing to stay an additional day for continued observation and treatment. SW discussed case w/ patient's [id number]. Patient continues to be resistant to making any further medication changes. At this time, she is less irritable, calmer and not expressing acute paranoia. We discussed possible discharge to home tomorrow under the care of her family. We discussed the importance of compliance with treatment and medications. No adverse effects to medications reported. Diagnostic Results: Li 0.8 on 05/26/17 Medication Change: No Medical Record Reviewed: Yes Consults ordered or reviewed: Medicine consult Psychology consult Pt is a 71 year old female admitted to the geropsych unit of [facility] Pt administered the DRS. On the DRS, pt scored an overall score of 95>. Pt evidenced deficits in all areas. She scored in the Deficient Range on Attention , Construction, Conceptualization, Memory and Initiation tasks. Pt had difficulty processing instructions on evaluation, required redirection and complex material was difficult for her to comprehend. Overall 95 Attention 22 Construction 2 Conceptualization 24 Initiation 24 Memory 12 Supervision for complex activities reccomended. Thank you for this referral, Dr. Walker Mental Status Examination - Cognitive Function Orientation: Person, Place, Situation, Time Memory: Intact Attention: WNL Concentration: WNL Fund of Knowledge: WNL Decription of patient's judgement and insights: Improving I/J - Mood Mood: Neutral - Affect Affect: Broad - Speech Speech: Appropriate - Formal Thought Process Formal Thought Process: Loosening of associations Psychotic Thoughts and Behaviors: Denies acute paranoia - Suicidal Ideation Suicidal Ideation: No - Homicidal Ideation Homicidal Ideation: No Goal/Treatment Plan - Goal/Treatment Plan Need for Continued Stay: Discharge may exacerbated symptoms Progress Toward Problem(s) and Goals/Treatment Plan: Schizoaffective Disorder; Dementia -Continue [place] 300 mg PO Q12; Li 0.8 on 05/26/17 -Continue Risperdal 1 mg PO Q12 -Continue Cogentin 0.5 mg PO Q12 -Patient unwilling to take medications for dementia -Medicine consult appreciated -Psychoeducation -Nicotine patch -Psychology consult appreciated -Case discussed w/ patient's son (POA) and [id number] -Disposition planning- likely discharge to home tomorrow Estimated Date of D/C: 05/28/17
[2017-05-27 15:42] VITALS: RESP 19
[2017-05-28] MEDS: Levothyroxine 25 MCG TAB PO SCH (05:57)
[2017-05-28 06:04] VITALS: BP 137/88; PULSE 79; TEMP 97.4
[2017-05-28] MEDS: Metoprolol Succinate 50 mg XL Tab PO SCH (09:15)
--- NOTE | 2017-05-28 10:31 | PCM.PYCHDC ---
Mental Status Examination - Mental Status Examination Orientation: Person, Place, Situation, Time Memory: Impaired Mood: Neutral Affect: Broad Speech: Appropriate Association: WNL Fund of Knowledge: WNL Formal Thought Process: No Impairment Description of patient's judgement and insight: Poor I/ Fair J Psychotic Thoughts and Behaviors: NO AH/VH/paranoia Suicidal Ideation: No Current Homicidal Ideation?: No Discharge Summary - Discharge Note Reason for Hospitalization: HPI: 71 yo female w/ h/o schizoaffective disorder, treated by Dr. Duval at the [facility], referred from the clinic due to worsening psychosis, carin, lack of sleep, beliefs that she can communicate with the , paranoia that someone wants to break in her home and sexually assault her, belief that someone is mistaking her for her daughter, seeing "shadows" and beliefs that she has premonitions and can determine if a person is "good" or "bad" just by meeting them in the context of likely non-compliance with medications. PPHx: Multiple past psychiatric admissions, currently being treated with [place] , Depakote, Risperdal and Cogentin at the [facility] w/ Dr. Duval. H/o suicide attempt in 1975 by overdose on alcohol and pills. On VPA 10.9 and L 0.3 PMHx: Hypothyroid, AFib, DVT (on Xarelto) PSurgHx: Cholecystectomy SHx: Lives w/ her son and [id number], +smoke 1.5 ppd, no drugs/etoh; unemployed ALL: PCN (rash) Laboratory Data: Li 0.8 on 05/26/17 Consultations:: List each consultation separately and include: 1. Reason for request. 2. Findings. 3. Follow-up Consultations: Medicine consult Psychology consult Pt is a 71 year old female admitted to the geropsych unit of [facility]. Pt administered the DRS. On the DRS, pt scored an overall score of 95>. Pt evidenced deficits in all areas. She scored in the Deficient Range on Attention , Construction, Conceptualization, Memory and Initiation tasks. Pt had difficulty processing instructions on evaluation, required redirection and complex material was difficult for her to comprehend. Overall 95 Attention 22 Construction 2 Conceptualization 24 Initiation 24 Memory 12 Supervision for complex activities reccomended. Thank you for this referral, Dr. Walker Summary of Hospital Course include:: 1. Description of specific treatment plan utilized for patients during their course of treatmen. 2. Summarize the time- course for resolution of acute symptoms and/or regressed behaviors. 3. Describe issues identified and worked on during hospitalization. 4. Describe medication utilized. 5. Describe medical problems identified and treated. 6. Reassessment of suicide risk Summary of Hospital Course: Patient was admitted to the geriatic psychiatry unit. Individual and group therapy were provided. Patient was stabilized on Risperdal 1 mg PO Q12, Cogentin 0.5 mg PO Q12 and [place] 300 mg PO Q12 (Li 0.8 on 05/26/17). The Depakote was stopped. Patient was also evaluated by the psychologist and underwent neuropsych testing, which determined that the patient has Dementia. She was not agreeable to any further changes of her psychiatric medications or treatment for dementia because she does not agree that she has dementia. Patient is currently psychiatrically stable for discharge with continued outpatient psychiatric treatment. She is agreeable to adult day care referral. Case was discussed w/ patient's family. She will return under the care of her family and her [id number] will be her home health aide. - Diagnosis (1) Schizoaffective disorder Current Visit: Yes Status: Chronic (2) Dementia Current Visit: Yes Status: Chronic - Final Diagnosis (DSM 5) Condition upon Discharge: STABLE DSM 5: Schizoaffective Disorder; Dementia Disposition: HOME/ ROUTINE Follow-up Treatment Plan: Schizoaffective Disorder; Dementia -Continue [place] 300 mg PO Q12; Li 0.8 on 05/26/17 -Continue Risperdal 1 mg PO Q12 -Continue Cogentin 0.5 mg PO Q12 -Patient unwilling to take medications for dementia -Medicine consult appreciated -Psychoeducation -Nicotine patch -Psychology consult appreciated -Case discussed w/ patient's son (POA) and [id number] -Disposition planning- discharge to home w/ outpatient psychiatric follow-up and adult day care Prescriptions/Medication Reconciliation: Benztropine [Cogentin] 0.5 mg PO Q12 #60 tab Levothyroxine [Synthroid] 25 mcg PO DAILY@0630 #30 tab [place] Carbonate [[place] Carbonate 300MG] 300 mg PO Q12 #60 cap Metoprolol Succinate [Toprol XL] 50 mg PO DAILY #50 tab risperiDONE [RisperDAL Tab] 1 mg PO Q12 #60 tab - Smoking Cessation Smoking Cessation Medication prescribed: Yes Reason for not providing: Nicotine patch given during admission, refused prescription - Antipsychotic Medications Pt discharged on 2 or more routine antipsychotic medications: No
== END 2017-05-28 13:45 | disposition home or self-care (01) | DRG 885 ==
LOC: H.ER 13:33 → H.ERHOLD 05-20 13:26 → H.STEP 05-20 15:40
PROVIDERS: ADMIT Psychiatry & Neurology Psychiatry; ATTEND Psychiatry & Neurology Psychiatry
PROC: GZHZZZZ Group Psychotherapy (ICD-10-PCS; principal; 2017-05-20)
PROC: GZ58ZZZ Individual Psychotherapy, Cognitive-Behavioral (ICD-10-PCS; 2017-05-20)
DX: F25.9 Schizoaffective disorder, unspecified (principal); I48.1 Persistent atrial fibrillation; F03.90 Unspecified dementia, unspecified severity, without behavioral disturbance, psychotic disturbance, mood disturbance, and anxiety; F31.9 Bipolar disorder, unspecified; E03.9 Hypothyroidism, unspecified; F17.210 Nicotine dependence, cigarettes, uncomplicated; Z91.5 Personal history of self-harm; Z79.01 Long term (current) use of anticoagulants; Z86.718 Personal history of other venous thrombosis and embolism; Z88.0 Allergy status to penicillin; Z90.49 Acquired absence of other specified parts of digestive tract

== ENCOUNTER 2017-08-12 01:30 | Inpatient (IN) | payer MEDICARE, MEDICAID ==
[2017-08-12 01:30] VITALS: BMI 31.5
--- NOTE | 2017-08-12 02:11 | ED PDOC ---
HPI: Psych/Substance Abuse Time Seen by Provider: 08/12/17 01:36 Chief Complaint (Nursing): Psychiatric Evaluation Chief Complaint (Provider): Psychiatric Evaluation ED Caveat: Uncooperative History Per: Patient History/Exam Limitations: other (Uncooperative) Current Symptoms Are (Timing): Still Present Suicide/Self Injury Attempted (Context): Other (Turning on all gas burners) Associated Symptoms: Suicidal Plan Additional Complaint(s): 71 year old female brought in by mobile crisis presents to ED for a psychiatric evaluation and has a past medical history of schizophrenia, AFIB, DVT, and schizoaffective disorder. Crisis states patient left all of the gas burners on in her house since yesterday evening. Patient refuses to answer any questions. PCP: Past Medical History Reviewed: Historical Data, Nursing Documentation, Vital Signs Vital Signs: Last Vital Signs Temp 97.9 F 08/12/17 01:40 Pulse 81 08/12/17 01:40 Resp 16 08/12/17 01:40 BP 135/80 08/12/17 01:40 Pulse Ox 99 08/12/17 01:40 - Medical History PMH: Bipolar Disorder, Depression, Hypothyroidism, Schizophrenia Denies: Asthma, Diabetes, Hepatitis, HIV, HTN, Chronic Kidney Disease, Seizures, Sexually Transmitted Disease - Surgical History Surgical History: Cholecystectomy - Family History Family History: States: Unknown Family Hx - Immunization History Hx Tetanus Toxoid Vaccination: No Hx Influenza Vaccination: No Hx Pneumococcal Vaccination: No - Home Medications Home Medications: Ambulatory Orders Medication Instructions Recorded Rivaroxaban [Xarelto] 20 mg PO DAILY 05/20/17 Benztropine [Cogentin] 0.5 mg PO Q12 #60 tab 05/26/17 Levothyroxine [Synthroid] 25 mcg PO DAILY@0630 #30 tab 05/26/17 Van Carbonate [Van 300 mg PO Q12 #60 cap 05/26/17 Carbonate 300MG] risperiDONE [RisperDAL Tab] 1 mg PO Q12 #60 tab 05/26/17 Metoprolol Succinate XL [Toprol XL] 50 mg PO DAILY #50 tab 05/27/17 - Allergies Allergies/Adverse Reactions: Allergies Allergy/AdvReac Type Severity Reaction Status Date / Time Penicillins Allergy RASH Verified 05/19/17 13:38 Review of Systems Review Of Systems: ROS cannot be obtained secondary to pt's inabilty to answer questions. (Patient refuses to answer questions) Physical Exam - Reviewed Nursing Documentation Reviewed: Yes Vital Signs Reviewed: Yes - Physical Exam Appears: Positive for: Non-toxic, No Acute Distress Skin: Positive for: Normal Color, Warm, Dry Cardiovascular/Chest: Positive for: Regular Rate, Rhythm. Negative for: Murmur Respiratory: Positive for: Normal Breath Sounds. Negative for: Respiratory Distress Gastrointestinal/Abdominal: Positive for: Normal Exam, Soft. Negative for: Tenderness Extremity: Positive for: Normal ROM. Negative for: Deformity Neurologic/Psych: Positive for: Alert, Oriented, Mood/Affect (flat affect). Negative for: Motor/Sensory Deficits - Laboratory Results Result Diagrams: 08/12/17 02:05 08/12/17 02:05 - ECG ECG: Positive for: Interpreted By Me, Viewed By Me ECG Rhythm: Positive for: Normal QRS, Normal ST Segment, Sinus Rhythm Rate: 78 (01:59 08/12/17) O2 Sat by Pulse Oximetry: 99 (RA) Pulse Ox Interpretation: Normal Medical Decision Making Medical Decision Makin Initial impression: 71 year old female with suicidal ideation in setting of known schizoaffective disorder Initial plan: * EKG * EtOH serum * Labs * UDrug screen * Van * Crisis eval * 1:1 OBS * UA 0215 Labs reviewed: no clinically significant abnormalities. 0239 Patient evaluated by crisis and will be admitted under Dr. Esteves (INPATIENT ADULT PSYCH) for schizoaffective disorder. Patient is medically cleared for admission. Scribe Attestation: Documented by Kailyn Warren acting as a scribe for James Dumas MD. Scribe Attestation: All medical record entries made by the Scribe were at my direction and personally dictated by me. I have reviewed the chart and agree that the record accurately reflects my personal performance of the history, physical exam, medical decision making, and the department course for this patient. I have also personally directed, reviewed, and agree with the discharge instructions and disposition. Disposition - Clinical Impression Clinical Impression: Schizoaffective disorder - Patient ED Disposition Is Patient to be Admitted: Yes - Disposition Disposition Time: 02:39 Condition: STABLE - Pt Status Changed To: Hospital Disposition Of: Inpatient (INPATIENT) - Admit Certification Admit to Inpatient:: After my assessment, the patient will require hospitalization for at least two midnights. This is because of the severity of symptoms shown, intensity of services needed, and/or the medical risk in this patient being treated as an outpatient.
[2017-08-12 02:20] LABS: BASO % 0.7 % (0.0-2.0); EOS # 0.1 K/uL (0.0-0.7); HEMOGLOBIN 12.8 g/dL (12.0-16.0); LYMPH # 1.3 K/uL (1.0-4.3); LYMPH % 19.9 % (20.0-40.0); MEAN CELL VOLUME 89.4 fl (81.0-99.0); MEAN CORPUSCULAR HGB CONC 32.4 g/dL (33.0-37.0); MEAN PLATELET VOLUME 7.9 fl (7.2-11.7); MONO # 0.4 K/uL (0.0-0.8); MONO % 6.8 % (0.0-10.0); NEUT # 4.4 K/uL (1.8-7.0); NEUT % 70.6 % (50.0-75.0); NRBC % 0.1 % (0.0-0.0); RBC 4.43 Mil/uL (3.80-5.20); RED CELL DISTRIBUTION WIDTH 15.9 % (11.5-14.5); WHITE BLOOD COUNT 6.3 K/uL (4.8-10.8)
[2017-08-12 02:34] LABS: ALB/GLOB RATIO 1.1 (1.0-2.1); ALBUMIN 4.1 g/dL (3.5-5.0); ALT/SGPT 17 U/L (9-52); AST/SGOT 23 U/L (14-36); BLOOD UREA NITROGEN 14 mg/dl (7-17); CALCIUM 9.8 mg/dL (8.4-10.2); GFR AFRICAN-AMERICAN 54; GFR NON-AFRICAN AMERICAN 45
[2017-08-12 03:04] LABS: SQUAMOUS EPITHIAL 2 /hpf (0-5); URINE BILIRUBIN NEGATIVE (NEGATIVE); URINE BLOOD NEGATIVE (NEGATIVE); URINE CLARITY CLEAR (Clear); URINE COLOR STRAW (YELLOW); URINE GLUCOSE (UA) NEG (Normal); URINE LEUKOCYTE ESTERASE SMALL Leu/uL (Negative); URINE PROTEIN NEGATIVE (NEGATIVE); URINE UROBILINOGEN 0.2-1.0 mg/dL (0.2-1.0)
[2017-08-12 03:30] LABS: BARBITURATES, UR NEGATIVE (NEGATIVE); BENZODIAZEPINES, UR NEGATIVE (NEGATIVE); OPIATES, UR NEGATIVE (NEGATIVE); PHENCYCLIDINE, UR NEGATIVE (NEGATIVE)
[2017-08-12] MEDS ORDERED: Alum-Mag Hydrox-Simethicone Susp (30 mL) PO PRN (04:14)
[2017-08-12] MEDS ORDERED: Magnesium Hydroxide Susp 30 ml UD PO PRN (04:14)
[2017-08-12] MEDS ORDERED: Bismuth Subsalicylate 262 mg/15 ml Sus (240 ml) PO PRN (04:14)
[2017-08-12 04:31] VITALS: O2SAT 99
--- NOTE | 2017-08-12 05:00 | PCM.BM ---
<Keyla Christopher - Last Filed: 08/12/17 04:58> Treatment Plan Problems - Problems identified on initial assessmt Delusions Date Initiated: 08/12/17 Time Initiated: 04:59 Assessment reference: NA Status: Active Medication nonadherence Date Initiated: 08/12/17 Time Initiated: 04:59 Assessment reference: NA Status: Active Treatment assets and liabiliti Patient Assests: adapts well, cooperative, good support system, cognitively intact Patient Liabilities: other (non compliant with medication) - Milieu Protocol Maintain good personal hygiene: daily Encourage regular showers, daily Remind patient to perform daily oral care, daily Assist patient to perform ADL's Conduct patient checks and document Observation sheet: Q15 minutes Maintain personal safety: every shift Educate patient to report safety concerns to staff, every shift Monitor environment for contraband/sharps Medication safety: Monitor for expected outcome, potential side effects: every shift, Assess barriers to learning: every shift, Assess readiness for medication education: every shift <Mili Esteves - Last Filed: 08/12/17 08:36> - Diagnosis (1) Schizoaffective disorder Status: Chronic Interventions: Medication management, Individual and group therapy, Psychoeducation 08/12/17 08:36 <Lulu Connors M - Last Filed: 08/12/17 12:21> Family Contact Family involvement: Patient does not wish Family/SO involvement Family contact: Family contacted unit to give information (Pt's daughter in law , Domitila spoke with nurse group fitness manager, Maryellen Corbett) - Outside Agency [facility] Care involvment: Information-sharing (Reportedly, pt has been non-compliant with her scheduled apointments) Agency contact name: Dr. Mukund MD Agency contact number: [phone] Discharge/Continuing Care - Education Needs Education Needs: Family Medication, Family Diagnosis/Disease Process, Family Coping Skills, Family Placement options, Family Community resources, Family Activities of Daily Living, Family Health Practices/Safety, Family Personal Hygiene/Grooming, Family Aftercare Safety Plan, Patient Medication, Patient Diagnosis/Disease Process, Patient Coping Skills, Patient Placement options, Patient Community resources, Patient Activities of Daily Living, Patient Health Practices/Safety, Patient Personal Hygiene/Grooming, Patient Aftercare Safety Plan - Discharge Discharge Criteria: Tolerates medication w/o severe side effects, Free of paranoid thoughts, Free of agitation, Normal sleep pattern, Ability to care for self, Reduction of target symptoms Discharge to:: Home - Additional Comments 08/12/17 12:02 Pt seen and discussed in team meeting. Reason for hospitalization reviewed. Pt reported that the police brought her to the hospital. Reportedly, pt was referred to the ED BY [facility] Mobile Crisis. Pt reported that her daughter, Alber is "my enemy" and she was the person who called the police. Pt also reported that she is in the hospital so that her family can have a libertarian in her apartment without her presence. Attending psychiatrist inquired about the the bizarre bx's in the community such as, inappropriately dressed, bringing strangers to her home (homeless) and paranoid thought process. Pt reported that she is not inappropriately dressed, but rather "dressing sexy and they like what they see." Pt reported medication non-compliance. Pt also reported that she believes she can predict the future. Pt's medications reviewed. Attending physician will re-start previous medications pt was prescribed in May 2017. Pt 's social and medical issues reviewed. Heat Reader inquired about consent for collateral review. Pt refused to sign release form for information to her grandson, son ([place]), daughter in law (Domitila) and daughter (Alber). Pt stated "they my enemy." Heat Reader inquired about [id number], Domitila and pt stated "she has to do what the says." Heat Reader inquired about [facility] and pt reported "I give permission but no sign nothing." SW to continue to follow case. - Treatment Team Participation Discussed with Family/SO: No Was Patient/Family/SO present at Treatment Team Meeting: Yes
[2017-08-12 07:06] LABS: IRON 40 ug/dL (37-170)
[2017-08-12 07:17] LABS: % IRON SATURATION 11 % (20-55); TOTAL IRON BINDING CAPACITY 380 ug/dL (250-450)
[2017-08-12 07:28] LABS: T4 8.6 ug/dl (5.5-11.0)
[2017-08-12 07:46] LABS: FERRITIN 36.2 ng/Ml (11.1-264.0)
[2017-08-12] MEDS: Metoprolol Succinate 50 mg XL Tab PO SCH (08:32)
--- NOTE | 2017-08-12 08:34 | RAD ---
HISTORY: admit COMPARISON: 05/19/2017, 09/26/2015 and 02/15/2014 TECHNIQUE: Chest PA and lateral FINDINGS: LUNGS: No consolidation. PLEURA: No significant pleural effusion identified. No pneumothorax apparent. CARDIOVASCULAR: Cardiomegaly -right ventricular prominence and prominent central pulmonary vasculature - both findings are multiyear stable. Central pulmonary arterial hypertension is a consideration. OSSEOUS STRUCTURES: Thoracic spondylosis. VISUALIZED UPPER ABDOMEN: Normal. OTHER FINDINGS: None. IMPRESSION: Multiyear stable appearing cardiomegaly (right ventricle more than left) with prominent central pulmonary vasculature -pulmonary arterial hypertension -suspect No interval imaging pathology noted
--- NOTE | 2017-08-12 08:37 | CP.PCM.CON ---
<Syed Bobo - Last Filed: 08/12/17 11:34> History of Present Illness - History of Present Illness History of Present Illness: This is 71 y/o F with PMH of bipolar disorder, schizophrenia, hypothyroid and A- fib admitted to for evaluation and treatment of schizophrenia. Patient reports improved mood this morning, Denies depression, suicidal or homicidal ideation. Reports chronic lumbar discomfort, denies recent falls or trauma. Denies: Chest pain/SOB/N/V/dysuria/f, constipation, diarrhea, or dizziness. Ambulating well, tolerating PO intake, no flat effect.Patient denies any cold/ Hot intolerance. PMD: Dr. Rosalind Rojas/ [facility] Psychiatrist: Dr. Duval PMH: bipolar disorder, schizophrenia, hypothyroid and a fib PSH: partial cholecystectomy 4 years ago Allg: PCN: anaphylaxis, rash FM: Decreased parents, unknown SH: lives with grandson; smokes 1 pack per day since long time; denies: alcohol or illicit drugs Meds: reviewed on [facility] -Iselin, Depakote, Resperdal, Congentin, Levothyroxine (pt denies taking), Xarelto, Ambien, Metoprolol ROS: As HPI Past Patient History - Past Medical History & Family History Past Medical History?: Yes - Past Social History Smoking Status: Heavy Smoker > 10 Cigarettes Daily - CARDIAC Hx Hypertension: No - PULMONARY Hx Asthma: No - NEUROLOGICAL Hx Seizures: No - HEENT Hx HEENT Problems: No - RENAL Hx Chronic Kidney Disease: No - ENDOCRINE/METABOLIC Hx Hypothyroidism: Yes - HEMATOLOGICAL/ONCOLOGICAL Hx Human Immunodeficiency Virus (HIV): No - INTEGUMENTARY Hx Dermatological Problems: No - MUSCULOSKELETAL/RHEUMATOLOGICAL Hx Musculoskeletal Disorders: No - GASTROINTESTINAL Hx Gastrointestinal Disorders: No - GENITOURINARY/GYNECOLOGICAL Hx Sexually Transmitted Disorders: No - PSYCHIATRIC Hx Bipolar Disorder: Yes Hx Depression: Yes Hx Schizophrenia: Yes - SURGICAL HISTORY Hx Cholecystectomy: Yes - ANESTHESIA Hx Anesthesia: Yes Hx Anesthesia Reactions: No Hx Malignant Hyperthermia: No Meds Allergies/Adverse Reactions: Allergies Allergy/AdvReac Type Severity Reaction Status Date / Time Penicillins Allergy RASH Verified 05/19/17 13:38 - Medications Medications: Current Medications Acetaminophen (Tylenol 325mg Tab) 650 mg PO Q4 PRN PRN Reason: Pain, moderate (4-7) Al Hydrox/Mg Hydrox/Simethicone (Maalox Plus 30 Ml) 30 ml PO Q4 PRN PRN Reason: Dyspepsia Benztropine Mesylate (Cogentin) 0.5 mg PO Q12 [facility] Bismuth Subsalicylate (Pepto-Bismol) 524 mg PO Q4 PRN PRN Reason: Diarrhea Levothyroxine Sodium (Synthroid) 100 mcg PO DAILY@0630 [facility] Iselin Carbonate (Iselin Carbonate 300mg) 300 mg PO Q12 [facility] Lorazepam (Ativan) 0.5 mg PO HS PRN PRN Reason: Insomnia Stop: 08/26/17 04:15 Lorazepam (Ativan) 0.5 mg PO Q6 PRN PRN Reason: Anixety/Agitation Stop: 08/26/17 04:15 Magnesium Hydroxide (Milk Of Magnesia) 30 ml PO HS PRN PRN Reason: Constipation Metoprolol Succinate (Toprol Xl) 50 mg PO DAILY [facility] Last Admin: 08/12/17 08:32 Dose: 50 mg Risperidone (Risperdal Tab) 1 mg PO Q12 [facility] Rivaroxaban (Xarelto) 20 mg PO DAILY [facility] PRN Reason: Protocol Last Admin: 08/12/17 08:32 Dose: 20 mg Results - Vital Signs Recent Vital Signs: Last Vital Signs Temp 98.4 F 08/12/17 06:00 Pulse 81 08/12/17 08:32 Resp 19 08/12/17 06:00 BP 129/81 08/12/17 08:32 Pulse Ox 99 08/12/17 04:30 - Labs Result Diagrams: 08/12/17 02:05 08/12/17 02:05 Labs: Laboratory Results - last 24 hr 08/12/17 08/12/17 08/12/17 01:50 01:50 02:05 WBC RBC Hgb Hct MCV MCH MCHC RDW Plt Count MPV Neut % (Auto) Lymph % (Auto) Rolette % (Auto) Eos % (Auto) Baso % (Auto) Neut # (Auto) Lymph # (Auto) Rolette # (Auto) Eos # (Auto) Baso # (Auto) Sodium 146 Potassium 4.0 Chloride 111 H Carbon Dioxide 26 Anion Gap 13 BUN 14 Creatinine 1.2 Est GFR ( Amer) 54 Est GFR (Non-Af Amer) 45 Random Glucose 95 Calcium 9.8 Iron TIBC % Saturation Ferritin Total Bilirubin 1.1 AST 23 ALT 17 Alkaline Phosphatase 74 Total Protein 7.6 Albumin 4.1 Globulin 3.6 Albumin/Globulin Ratio 1.1 Triglycerides Cholesterol LDL Cholesterol Direct HDL Cholesterol Vitamin B12 Free T4 Thyroxine (T4) TSH 3rd Generation Urine Color Straw Urine Clarity Clear Urine pH 7.0 Ur Specific Benezett < 1.005 Urine Protein Negative Urine Glucose (UA) Neg Urine Ketones Negative Urine Blood Negative Urine Nitrate Negative Urine Bilirubin Negative Urine Urobilinogen 0.2-1.0 Ur Leukocyte Esterase Small Urine RBC (Auto) 2 Urine Microscopic WBC 5 Ur Squamous Epith Cells 2 Urine Opiates Screen Negative Urine Methadone Screen Negative Ur Barbiturates Screen Negative Ur Phencyclidine Scrn Negative Ur Amphetamines Screen Negative U Benzodiazepines Scrn Negative Iselin U Oth Cocaine Metabols Negative U Cannabinoids Screen Negative Alcohol, Quantitative < 10 08/12/17 08/12/17 08/12/17 02:05 02:05 06:05 WBC 6.3 RBC 4.43 Hgb 12.8 Hct 39.6 MCV 89.4 D MCH 29.0 MCHC 32.4 L RDW 15.9 H Plt Count 197 MPV 7.9 Neut % (Auto) 70.6 Lymph % (Auto) 19.9 L Rolette % (Auto) 6.8 Eos % (Auto) 2.0 Baso % (Auto) 0.7 Neut # (Auto) 4.4 Lymph # (Auto) 1.3 Rolette # (Auto) 0.4 Eos # (Auto) 0.1 Baso # (Auto) 0.0 Sodium Potassium Chloride Carbon Dioxide Anion Gap BUN Creatinine Est GFR ( Amer) Est GFR (Non-Af Amer) Random Glucose Calcium Iron TIBC % Saturation Ferritin 36.2 Total Bilirubin AST ALT Alkaline Phosphatase Total Protein Albumin Globulin Albumin/Globulin Ratio Triglycerides 97 D Cholesterol 126 LDL Cholesterol Direct 49 HDL Cholesterol 38 Vitamin B12 234 L Free T4 Thyroxine (T4) 8.60 TSH 3rd Generation 7.81 H Urine Color Urine Clarity Urine pH Ur Specific Benezett Urine Protein Urine Glucose (UA) Urine Ketones Urine Blood Urine Nitrate Urine Bilirubin Urine Urobilinogen Ur Leukocyte Esterase Urine RBC (Auto) Urine Microscopic WBC Ur Squamous Epith Cells Urine Opiates Screen Urine Methadone Screen Ur Barbiturates Screen Ur Phencyclidine Scrn Ur Amphetamines Screen U Benzodiazepines Scrn Iselin 0.4 L U Oth Cocaine Metabols U Cannabinoids Screen Alcohol, Quantitative 08/12/17 08/12/17 06:05 06:05 WBC RBC Hgb Hct MCV MCH MCHC RDW Plt Count MPV Neut % (Auto) Lymph % (Auto) Rolette % (Auto) Eos % (Auto) Baso % (Auto) Neut # (Auto) Lymph # (Auto) Rolette # (Auto) Eos # (Auto) Baso # (Auto) Sodium Potassium Chloride Carbon Dioxide Anion Gap BUN Creatinine Est GFR ( Amer) Est GFR (Non-Af Amer) Random Glucose Calcium Iron 40 TIBC 380 % Saturation 11 L Ferritin Total Bilirubin AST ALT Alkaline Phosphatase Total Protein Albumin Globulin Albumin/Globulin Ratio Triglycerides Cholesterol LDL Cholesterol Direct HDL Cholesterol Vitamin B12 Free T4 1.00 Thyroxine (T4) TSH 3rd Generation Urine Color Urine Clarity Urine pH Ur Specific Benezett Urine Protein Urine Glucose (UA) Urine Ketones Urine Blood Urine Nitrate Urine Bilirubin Urine Urobilinogen Ur Leukocyte Esterase Urine RBC (Auto) Urine Microscopic WBC Ur Squamous Epith Cells Urine Opiates Screen Urine Methadone Screen Ur Barbiturates Screen Ur Phencyclidine Scrn Ur Amphetamines Screen U Benzodiazepines Scrn Iselin U Oth Cocaine Metabols U Cannabinoids Screen Alcohol, Quantitative Assessment & Plan - Assessment and Plan (Free Text) Assessment: A/P: 71 y/o F with PMH of bipolar disorder, schizophrenia, hypothyroid and A-fib admitted to for evaluation and treatment of schizophrenia. Bipolar schizophrenia - Currently managed as per psych Hypothyroid - TSH 7.8, T4 8.6 (08/12/17) - C/w levothyroxine 100mcg A-fib - Chronic, Asymptomatic , rate and rhythm controlled - CXR: persistent central vasculature and pulmonary venous congestion; No active pulmonary disease - EKG: NSR; normal - C/w home meds; Xarelto 20mg daily and Metoprolol Succinate 50mg PO daily DVT prophylaxis - pt ambulating <Natalee Driscoll - Last Filed: 08/12/17 13:33> Meds - Medications Medications: Current Medications Acetaminophen (Tylenol 325mg Tab) 650 mg PO Q4 PRN PRN Reason: Pain, moderate (4-7) Al Hydrox/Mg Hydrox/Simethicone (Maalox Plus 30 Ml) 30 ml PO Q4 PRN PRN Reason: Dyspepsia Benztropine Mesylate (Cogentin) 0.5 mg PO Q12 [facility] Last Admin: 08/12/17 11:34 Dose: 0.5 mg Bismuth Subsalicylate (Pepto-Bismol) 524 mg PO Q4 PRN PRN Reason: Diarrhea Levothyroxine Sodium (Synthroid) 100 mcg PO DAILY@0630 [facility] Last Admin: 08/12/17 11:30 Dose: 100 mcg Iselin Carbonate (Iselin Carbonate 300mg) 300 mg PO Q12 [facility] Last Admin: 08/12/17 11:31 Dose: 300 mg Lorazepam (Ativan) 0.5 mg PO HS PRN PRN Reason: Insomnia Stop: 08/26/17 04:15 Lorazepam (Ativan) 0.5 mg PO Q6 PRN PRN Reason: Anixety/Agitation Stop: 08/26/17 04:15 Magnesium Hydroxide (Milk Of Magnesia) 30 ml PO HS PRN PRN Reason: Constipation Metoprolol Succinate (Toprol Xl) 50 mg PO DAILY [facility] Last Admin: 08/12/17 08:32 Dose: 50 mg Nicotine (Nicoderm Cq) 1 patch TD DAILY [facility] Last Admin: 08/12/17 11:31 Dose: Not Given Risperidone (Risperdal Tab) 1 mg PO Q12 [facility] Last Admin: 08/12/17 11:34 Dose: 1 mg Rivaroxaban (Xarelto) 20 mg PO DAILY [facility] PRN Reason: Protocol Last Admin: 08/12/17 08:32 Dose: 20 mg Results - Vital Signs Recent Vital Signs: Last Vital Signs Temp 98.4 F 08/12/17 06:00 Pulse 81 08/12/17 08:32 Resp 19 08/12/17 06:00 BP 129/81 08/12/17 08:32 Pulse Ox 99 08/12/17 04:30 - Labs Result Diagrams: 08/12/17 02:05 08/12/17 02:05 Labs: Laboratory Results - last 24 hr 08/12/17 08/12/17 08/12/17 01:50 01:50 02:05 WBC RBC Hgb Hct MCV MCH MCHC RDW Plt Count MPV Neut % (Auto) Lymph % (Auto) Rolette % (Auto) Eos % (Auto) Baso % (Auto) Neut # (Auto) Lymph # (Auto) Rolette # (Auto) Eos # (Auto) Baso # (Auto) Sodium 146 Potassium 4.0 Chloride 111 H Carbon Dioxide 26 Anion Gap 13 BUN 14 Creatinine 1.2 Est GFR ( Amer) 54 Est GFR (Non-Af Amer) 45 Random Glucose 95 Calcium 9.8 Iron TIBC % Saturation Ferritin Total Bilirubin 1.1 AST 23 ALT 17 Alkaline Phosphatase 74 Total Protein 7.6 Albumin 4.1 Globulin 3.6 Albumin/Globulin Ratio 1.1 Triglycerides Cholesterol LDL Cholesterol Direct HDL Cholesterol Vitamin B12 Free T4 Thyroxine (T4) TSH 3rd Generation Urine Color Straw Urine Clarity Clear Urine pH 7.0 Ur Specific Benezett < 1.005 Urine Protein Negative Urine Glucose (UA) Neg Urine Ketones Negative Urine Blood Negative Urine Nitrate Negative Urine Bilirubin Negative Urine Urobilinogen 0.2-1.0 Ur Leukocyte Esterase Small Urine RBC (Auto) 2 Urine Microscopic WBC 5 Ur Squamous Epith Cells 2 Urine Opiates Screen Negative Urine Methadone Screen Negative Ur Barbiturates Screen Negative Ur Phencyclidine Scrn Negative Ur Amphetamines Screen Negative U Benzodiazepines Scrn Negative Iselin U Oth Cocaine Metabols Negative U Cannabinoids Screen Negative Alcohol, Quantitative < 10 08/12/17 08/12/17 08/12/17 02:05 02:05 06:05 WBC 6.3 RBC 4.43 Hgb 12.8 Hct 39.6 MCV 89.4 D MCH 29.0 MCHC 32.4 L RDW 15.9 H Plt Count 197 MPV 7.9 Neut % (Auto) 70.6 Lymph % (Auto) 19.9 L Rolette % (Auto) 6.8 Eos % (Auto) 2.0 Baso % (Auto) 0.7 Neut # (Auto) 4.4 Lymph # (Auto) 1.3 Rolette # (Auto) 0.4 Eos # (Auto) 0.1 Baso # (Auto) 0.0 Sodium Potassium Chloride Carbon Dioxide Anion Gap BUN Creatinine Est GFR ( Amer) Est GFR (Non-Af Amer) Random Glucose Calcium Iron TIBC % Saturation Ferritin 36.2 Total Bilirubin AST ALT Alkaline Phosphatase Total Protein Albumin Globulin Albumin/Globulin Ratio Triglycerides 97 D Cholesterol 126 LDL Cholesterol Direct 49 HDL Cholesterol 38 Vitamin B12 234 L Free T4 Thyroxine (T4) 8.60 TSH 3rd Generation 7.81 H Urine Color Urine Clarity Urine pH Ur Specific Benezett Urine Protein Urine Glucose (UA) Urine Ketones Urine Blood Urine Nitrate Urine Bilirubin Urine Urobilinogen Ur Leukocyte Esterase Urine RBC (Auto) Urine Microscopic WBC Ur Squamous Epith Cells Urine Opiates Screen Urine Methadone Screen Ur Barbiturates Screen Ur Phencyclidine Scrn Ur Amphetamines Screen U Benzodiazepines Scrn Iselin 0.4 L U Oth Cocaine Metabols U Cannabinoids Screen Alcohol, Quantitative 08/12/17 08/12/17 06:05 06:05 WBC RBC Hgb Hct MCV MCH MCHC RDW Plt Count MPV Neut % (Auto) Lymph % (Auto) Rolette % (Auto) Eos % (Auto) Baso % (Auto) Neut # (Auto) Lymph # (Auto) Rolette # (Auto) Eos # (Auto) Baso # (Auto) Sodium Potassium Chloride Carbon Dioxide Anion Gap BUN Creatinine Est GFR ( Amer) Est GFR (Non-Af Amer) Random Glucose Calcium Iron 40 TIBC 380 % Saturation 11 L Ferritin Total Bilirubin AST ALT Alkaline Phosphatase Total Protein Albumin Globulin Albumin/Globulin Ratio Triglycerides Cholesterol LDL Cholesterol Direct HDL Cholesterol Vitamin B12 Free T4 1.00 Thyroxine (T4) TSH 3rd Generation Urine Color Urine Clarity Urine pH Ur Specific Benezett Urine Protein Urine Glucose (UA) Urine Ketones Urine Blood Urine Nitrate Urine Bilirubin Urine Urobilinogen Ur Leukocyte Esterase Urine RBC (Auto) Urine Microscopic WBC Ur Squamous Epith Cells Urine Opiates Screen Urine Methadone Screen Ur Barbiturates Screen Ur Phencyclidine Scrn Ur Amphetamines Screen U Benzodiazepines Scrn Iselin U Oth Cocaine Metabols U Cannabinoids Screen Alcohol, Quantitative Attending/Attestation - Attestation I have personally seen and examined this patient.: Yes I have fully participated in the care of the patient.: Yes I have reviewed all pertinent clinical information: Yes
--- NOTE | 2017-08-12 08:40 | PCM.PSYCH ---
Initial Psychiatric Evaluation - Initial Psychiatric Evaluation Type of Admission: Voluntary Chief Complaint (in patient's own words): As per patient: "My grandson and son want me to sit at home staring at the montes all day." Collateral history: Bizarre behavior/ acute decompensation Patient's Reaction to Hospitalization: HPI: 71 yo female w/ h/o schizoaffective disorder, BIB [facility] due to bizarre behavior in the context of non-compliance with medications. She believes that her grandson is beating her. Patient is currently minimizing symptoms, denies depression/anxiety/AH/VH. +Paranoia that people are trying to steal from her or harm her. +Believes she can see and predict the future. As per collateral obtained in the ER from the grandson "he stated he is scared to leave pt alone due to her leaving the stovetop burners on, bringing strange homeless people in, and is wandering around the streets sometimes naked." PPHx: Multiple past psychiatric admissions, last admitted to [facility] and discharged on Risperdal, Cogentin and [place]. No compliant with outpatient treatment or medications. H/o suicide attempt in 1975 by overdose on alcohol and pills. PMHx: Hypothyroid, AFib, DVT (on Xarelto) PSurgHx: Cholecystectomy SHx: Lives w/ her son and [id number], +smoke 1.5 ppd, no drugs/etoh; unemployed ALL: PCN (rash) Current Medications: Active Medications Generic Name Dose Route Start Last Admin Trade Name Freq PRN Reason Stop Dose Admin Acetaminophen 650 mg 08/12/17 04:14 Tylenol 325mg Tab PO Q4 PRN Pain, moderate (4-7) Al Hydrox/Mg Hydrox/Simethicone 30 ml 08/12/17 04:14 Maalox Plus 30 Ml PO Q4 PRN Dyspepsia Benztropine Mesylate 0.5 mg 08/12/17 09:00 Cogentin PO Q12 [facility]IO Bismuth Subsalicylate 524 mg 08/12/17 04:14 Pepto-Bismol PO Q4 PRN Diarrhea Levothyroxine Sodium 100 mcg 08/12/17 08:04 Synthroid PO DAILY@0630 [facility] [place] Carbonate 300 mg 08/12/17 09:00 [place] Carbonate 300mg PO Q12 [facility] Lorazepam 0.5 mg 08/12/17 04:14 Ativan PO 08/26/17 04:15 HS PRN Insomnia Lorazepam 0.5 mg 08/12/17 04:14 Ativan PO 08/26/17 04:15 Q6 PRN Anixety/Agitation Magnesium Hydroxide 30 ml 08/12/17 04:14 Milk Of Magnesia PO HS PRN Constipation Metoprolol Succinate 50 mg 08/12/17 09:00 08/12/17 08:32 Toprol Xl PO 50 mg DAILY [facility] Administration Risperidone 1 mg 08/12/17 09:00 Risperdal Tab PO Q12 [facility] Rivaroxaban 20 mg 08/12/17 09:00 08/12/17 08:32 Xarelto PO 20 mg DAILY [facility] Administration Protocol Past Psychiatric History - Past Psychiatric History Previous Treatment History: Inpatient Pertinent Medical Hx (Current Medical&Sleep Prob, Allergies): Allergies Allergy/AdvReac Type Severity Reaction Status Date / Time Penicillins Allergy RASH Verified 05/19/17 13:38 Rivaroxaban [Xarelto] 20 mg PO DAILY 05/20/17 Benztropine [Cogentin] 0.5 mg PO Q12 #60 tab 05/26/17 Levothyroxine [Synthroid] 25 mcg PO DAILY@0630 #30 tab 05/26/17 [place] Carbonate [[place] Carbonate 300MG] 300 mg PO Q12 #60 cap 05/26/17 risperiDONE [RisperDAL Tab] 1 mg PO Q12 #60 tab 05/26/17 Metoprolol Succinate XL [Toprol XL] 50 mg PO DAILY #50 tab 05/27/17 Review of Systems - Psychiatric Psychiatric: As Per HPI, Abnormal Sleep Pattern, Anxiety, Behavioral Changes, Difficulty Concentrating, Irritability, Memory Loss, Mood Swings Mental Status Examination - Personal Presentation Personal Presentation: Looks stated age - Affect Affect: Broad - Motor Activity Motor Activity: Calm - Reliability in Providing Information Reliability in Providing Information: Poor, due to alteration in thoughts - Speech Speech: Tangential, Coherent - Mood Mood: Neutral - Formal Thought Process Formal Thought Process: Delusions (Believes she can predict the future), Paranoia, Loosening of associations - Hallucinations/Delusions Additional comments: Denies AH/VH - Obsessions/Compulsions Obsessions: No Compulsions: No - Cognitive Functions Orientation: Person, Place, Situation, Time Sensorium: Alert Judgement: Imparied, as evidence by: Poor judgement Memory: Recent intact, as evidence by: Ability to recall events of the day - Risk Risk: Diminished functioning - Strength & Assets Inventory Strength & Assets Inventory: Family support, Cooperative - Limitations Limitations: Decreased memory, recent DSM 5 DX - DSM 5 DSM 5 Diagnosis: Schizoaffective Disorder; Dementia - Recommended/Plan of Treatment Treatment Recommendations and Plan of Treatment: Schizoaffective Disorder; Dementia -Admit to psychiatry unit -Individual and group therapy -Obtain collateral history -Restart Risperdal 1 mg PO Q12, Cogentin 0.5 mg PO Q12 and [place] 300 mg PO Q12 -Medicine consult -Disposition planning Projected ELOS: 5-10 days Discharge Plan and Discharge Criteria: Discharge when patient is psychiatrically stable - Smoking Cessation Smoking Cessation Initiated: No Reason for not providing: Patient declined
--- NOTE | 2017-08-12 11:04 | CARD ---
APPROVED REPORT EKG Measurement Heart [id number] <Conclusion> Normal sinus rhythm Normal ECG
[2017-08-12] MEDS: Levothyroxine 100 MCG TAB PO SCH (11:30)
[2017-08-13] MEDS: Levothyroxine 100 MCG TAB PO SCH (05:39)
[2017-08-13] MEDS ORDERED: Levothyroxine 25 MCG TAB PO SCH ×2 (06:30)
[2017-08-13] MEDS: Metoprolol Succinate 50 mg XL Tab PO SCH (08:24)
--- NOTE | 2017-08-13 18:25 | PCM.PYCHPN ---
Psychiatric Progress Note - Psychiatric Progress Note Patient seen today, length of contact: chart reviewed case discussed Patient Chief Complaint: alteration in mood alteration in cognition Problems Identified/Issues Discussed: alteration in mood alteration in cognition alteration in self care Medical Problems: per chart Diagnostic Results: per psychiatry per medicine per nursing per social work DSM 5 Symptoms Update: labile at times, somewhat hyper, speech is pressured at time Medication Change: No Medical Record Reviewed: Yes Consults ordered or reviewed: pt seen by hospitalist Mental Status Examination - Cognitive Function Orientation: Person, Place, Situation, Time Memory: Impaired Attention: Poor Concentration: Poor Association: Loose Fund of Knowledge: Poor Decription of patient's judgement and insights: impaired - Mood Additional comments: labile - Affect Affect: Broad - Speech Additional comments: pressured at times - Formal Thought Process Formal Thought Process: Delusions (Believes she can predict the future), Paranoia, Loosening of associations - Homicidal Ideation Homicidal Ideation: No Goal/Treatment Plan - Goal/Treatment Plan Need for Continued Stay: Remain at risks for inpatient hospitalization, Discharge may exacerbated symptoms, Failed transitioning, Severe functional impairment Progress Toward Problem(s) and Goals/Treatment Plan: inpt/milieu vital signs and clinical observation per protocol adjust meds per status pt being followed by family medicine discharge planning in process Estimated Date of D/C: 08/18/17 - Smoking Cessation Smoking Cessation Initiated: Yes
[2017-08-14 06:10] LABS: BASO # 0.1 K/uL (0.0-0.2); BASO % 0.8 % (0.0-2.0); EOS # 0.2 K/uL (0.0-0.7); EOS % 2.5 % (0.0-4.0); HEMOGLOBIN 13.9 g/dL (12.0-16.0); LYMPH # 1.4 K/uL (1.0-4.3); LYMPH % 23.1 % (20.0-40.0); MEAN CORPUSCULAR HEMOGLOBIN 29.1 pg (27.0-31.0); MEAN CORPUSCULAR HGB CONC 32.7 g/dL (33.0-37.0); MEAN PLATELET VOLUME 8.1 fl (7.2-11.7); MONO # 0.5 K/uL (0.0-0.8); MONO % 8.3 % (0.0-10.0); NEUT # 3.9 K/uL (1.8-7.0); NEUT % 65.3 % (50.0-75.0); NRBC % 0.1 % (0.0-0.0); RBC 4.79 Mil/uL (3.80-5.20); RED CELL DISTRIBUTION WIDTH 15.6 % (11.5-14.5)
[2017-08-14 06:27] LABS: ALB/GLOB RATIO 1.2 (1.0-2.1); ALBUMIN 4.5 g/dL (3.5-5.0); ALT/SGPT 19 U/L (9-52); AST/SGOT 20 U/L (14-36); BLOOD UREA NITROGEN 23 mg/dl (7-17); CALCIUM 10.6 mg/dL (8.4-10.2); GFR AFRICAN-AMERICAN > 60; GFR NON-AFRICAN AMERICAN 55
[2017-08-14] MEDS: Levothyroxine 100 MCG TAB PO SCH (08:16)
[2017-08-14] MEDS: Metoprolol Succinate 50 mg XL Tab PO SCH (08:16)
--- NOTE | 2017-08-14 09:34 | CP.PCM.PN ---
<Syed Bobo - Last Filed: 08/14/17 12:39> Subjective - Date & Time of Evaluation Date of Evaluation: 08/14/17 Time of Evaluation: 07:20 - Subjective Subjective: Patient seen and examined this morning, NAD. Walking and smiling in hallway, reports better and improved mood. Patient denies any dizziness, SOB, chest pain , palpitations, f/c/n/v/d, abdominal pain, urinary symptoms or weakness. Objective - Vital Signs/Intake and Output Vital Signs (last 24 hours): Temp Pulse Resp BP Pulse Ox 97.5 F L 72 18 128/67 99 08/14/17 06:00 08/14/17 08:16 08/14/17 06:00 08/14/17 08:16 08/12/17 04:30 - Medications Medications: Current Medications Acetaminophen (Tylenol 325mg Tab) 650 mg PO Q4 PRN PRN Reason: Pain, moderate (4-7) Al Hydrox/Mg Hydrox/Simethicone (Maalox Plus 30 Ml) 30 ml PO Q4 PRN PRN Reason: Dyspepsia Last Admin: 08/14/17 06:43 Dose: 30 ml Benztropine Mesylate (Cogentin) 0.5 mg PO Q12 [facility] Last Admin: 08/13/17 21:12 Dose: 0.5 mg Bismuth Subsalicylate (Pepto-Bismol) 524 mg PO Q4 PRN PRN Reason: Diarrhea Levothyroxine Sodium (Synthroid) 100 mcg PO DAILY@0630 [facility] Last Admin: 08/14/17 08:16 Dose: [address] [place] Carbonate ([place] Carbonate 300mg) 300 mg PO Q12 [facility] Last Admin: 08/14/17 08:16 Dose: 300 mg Lorazepam (Ativan) 0.5 mg PO HS PRN PRN Reason: Insomnia Stop: 08/26/17 04:15 Lorazepam (Ativan) 0.5 mg PO Q6 PRN PRN Reason: Anixety/Agitation Stop: 08/26/17 04:15 Magnesium Hydroxide (Milk Of Magnesia) 30 ml PO HS PRN PRN Reason: Constipation Metoprolol Succinate (Toprol Xl) 50 mg PO DAILY [facility] Last Admin: 08/14/17 08:16 Dose: 50 mg Nicotine (Nicoderm Cq) 1 patch TD DAILY [facility] Last Admin: 08/13/17 08:27 Dose: Not Given Risperidone (Risperdal Tab) 1 mg PO Q12 [facility] Last Admin: 08/14/17 08:16 Dose: 1 mg Rivaroxaban (Xarelto) 20 mg PO DAILY [facility] PRN Reason: Protocol Last Admin: 08/14/17 08:16 Dose: 20 mg - Labs Labs: 08/14/17 05:46 08/14/17 05:46 - Constitutional Appears: No Acute Distress - Head Exam Head Exam: NORMAL INSPECTION - Eye Exam Eye Exam: Normal appearance, PERRL - ENT Exam ENT Exam: Mucous Membranes Moist - Neck Exam Neck Exam: Normal Inspection - Respiratory Exam Respiratory Exam: Clear to Ausculation Bilateral, NORMAL BREATHING PATTERN - Cardiovascular Exam Cardiovascular Exam: REGULAR RHYTHM, +S1, +S2 - GI/Abdominal Exam GI & Abdominal Exam: Soft, Normal Bowel Sounds. absent: Tenderness - Extremities Exam Extremities Exam: Full ROM, Normal Capillary Refill, Normal Inspection - Back Exam Back Exam: NORMAL INSPECTION. absent: CVA tenderness (L), CVA tenderness (R) - Neurological Exam Neurological Exam: Alert, Awake, CN II-XII Intact, Oriented x3 - Psychiatric Exam Psychiatric exam: Normal Affect - Skin Skin Exam: Normal Color Assessment and Plan - Assessment and Plan (Free Text) Assessment: A/P: 71 y/o F with PMH of bipolar disorder, schizophrenia, hypothyroid and A-fib admitted to for evaluation and treatment of schizophrenia. Bipolar schizophrenia - Currently managed as per psych Hypothyroid - TSH 7.8, T4 8.6 (08/12/17) - C/w levothyroxine 100mcg A-fib - Chronic, Asymptomatic , rate and rhythm controlled - C/w home meds; Xarelto 20mg daily and Metoprolol Succinate 50mg PO daily DVT prophylaxis - pt ambulating and Xarelto - C/w home medications after discharge <Natalee Driscoll - Last Filed: 08/14/17 13:06> Objective - Vital Signs/Intake and Output Vital Signs (last 24 hours): Temp Pulse Resp BP Pulse Ox 97.5 F L 72 18 128/67 99 08/14/17 06:00 08/14/17 08:16 08/14/17 06:00 08/14/17 08:16 08/12/17 04:30 - Medications Medications: Current Medications Acetaminophen (Tylenol 325mg Tab) 650 mg PO Q4 PRN PRN Reason: Pain, moderate (4-7) Al Hydrox/Mg Hydrox/Simethicone (Maalox Plus 30 Ml) 30 ml PO Q4 PRN PRN Reason: Dyspepsia Last Admin: 08/14/17 06:43 Dose: 30 ml Benztropine Mesylate (Cogentin) 0.5 mg PO Q12 [facility] Last Admin: 08/13/17 21:12 Dose: 0.5 mg Bismuth Subsalicylate (Pepto-Bismol) 524 mg PO Q4 PRN PRN Reason: Diarrhea Levothyroxine Sodium (Synthroid) 100 mcg PO DAILY@629 [facility] Last Admin: 08/14/17 08:16 Dose: [address] [place] Carbonate ([place] Carbonate 300mg) 300 mg PO Q12 [facility] Last Admin: 08/14/17 08:16 Dose: 300 mg Lorazepam (Ativan) 0.5 mg PO HS PRN PRN Reason: Insomnia Stop: 08/26/17 04:15 Lorazepam (Ativan) 0.5 mg PO Q6 PRN PRN Reason: Anixety/Agitation Stop: 08/26/17 04:15 Magnesium Hydroxide (Milk Of Magnesia) 30 ml PO HS PRN PRN Reason: Constipation Metoprolol Succinate (Toprol Xl) 50 mg PO DAILY [facility] Last Admin: 08/14/17 08:16 Dose: 50 mg Nicotine (Nicoderm Cq) 1 patch TD DAILY [facility] Last Admin: 08/13/17 08:27 Dose: Not Given Risperidone (Risperdal Tab) 1 mg PO Q12 [facility] Last Admin: 08/14/17 08:16 Dose: 1 mg Rivaroxaban (Xarelto) 20 mg PO DAILY [facility] PRN Reason: Protocol Last Admin: 08/14/17 08:16 Dose: 20 mg - Labs Labs: 08/14/17 05:46 08/14/17 05:46 Attending/Attestation - Attestation I have personally seen and examined this patient.: Yes I have fully participated in the care of the patient.: Yes I have reviewed all pertinent clinical information, including history, physical exam and plan: Yes
--- NOTE | 2017-08-14 18:23 | PCM.PYCHPN ---
Psychiatric Progress Note - Psychiatric Progress Note Patient seen today, length of contact: chart reviewed case discussed Patient Chief Complaint: alteration in mood alteration in cognition alteration in self care Problems Identified/Issues Discussed: alteration in mood alteration in cognition alteration in self care Medical Problems: per chart pt seen by family practice today Diagnostic Results: per psychiatry per medicine per nursing per social work DSM 5 Symptoms Update: pt reportedly somewhat less manic pt somewhat calmer possibly somewhat depressed Medication Change: No Medical Record Reviewed: Yes Consults ordered or reviewed: pt seen by family practice today Mental Status Examination - Cognitive Function Orientation: Person, Place, Situation, Time Memory: Impaired Attention: Poor Concentration: Poor Association: Loose Fund of Knowledge: Poor Decription of patient's judgement and insights: impaired - Mood Mood: Neutral - Affect Affect: Broad - Formal Thought Process Formal Thought Process: Delusions (Believes she can predict the future), Paranoia, Loosening of associations - Homicidal Ideation Homicidal Ideation: No Goal/Treatment Plan - Goal/Treatment Plan Need for Continued Stay: Remain at risks for inpatient hospitalization, Discharge may exacerbated symptoms, Failed transitioning, Severe functional impairment Progress Toward Problem(s) and Goals/Treatment Plan: inpt/milieu vital signs and clinical observation per protocol adjust meds per status pt being followed by family medicine discharge planning in process Estimated Date of D/C: 08/18/17 - Smoking Cessation Smoking Cessation Initiated: Yes
[2017-08-15] MEDS: Levothyroxine 100 MCG TAB PO SCH (05:47)
[2017-08-15] MEDS: Metoprolol Succinate 50 mg XL Tab PO SCH (08:15)
--- NOTE | 2017-08-15 12:59 | PCM.PYCHPN ---
Psychiatric Progress Note - Psychiatric Progress Note Patient seen today, length of contact: chart reviewed case discussed Patient Chief Complaint: pt has remained depressed and withdrawn and need a lot of encouragment.pt is maintained on lithium and tolerating it well. pt was c/o dizziness earlier and seen by frank and found to have atrial fibrillation and dr dong was called who saw pt with thenette.pt was started on i/v saline and cardiac consult calked with dr veliz. Medication Change: No Medical Record Reviewed: Yes Mental Status Examination - Cognitive Function Orientation: Person, Place, Situation, Time Memory: Impaired Attention: Poor Concentration: Poor Association: Loose Fund of Knowledge: Poor - Mood Mood: Neutral - Affect Affect: Broad - Formal Thought Process Formal Thought Process: Delusions (Believes she can predict the future), Paranoia, Loosening of associations - Homicidal Ideation Homicidal Ideation: No Goal/Treatment Plan - Goal/Treatment Plan Need for Continued Stay: Remain at risks for inpatient hospitalization, Discharge may exacerbated symptoms, Failed transitioning, Severe functional impairment Progress Toward Problem(s) and Goals/Treatment Plan: will coordinate medical care with dr veliz will continue the psych meds and psychoeducation provided. Estimated Date of D/C: 08/18/17
--- NOTE | 2017-08-15 16:41 | CP.PCM.PCO ---
Physician Communication Note - Physician Communication Note Physician Communication Note: Paged by nurse, patient with HR 118bpm and complained of dizziness Assessment/Plan - Assessment and Plan (Free Text) Assessment: Patient seen and examined at bedside. Reports she felt dizzy when she walked from the bathroom back to her bed. Was able to walk from recreation room to her bedroom without assistance, did not feel dizzy at that time. Reports she does not feel dizzy when she walks to the bathroom. Denies dizziness while in bed, or while sitting up eating. Denies chest pain, SOB, headache, visual changes. Reports chronic back pain. Patient has hx of Long standing persistent A-fib, uncontrolled hypothyroidism, hx LLE DVT, Bipolar d/o and schizophrenia. Patient was not compliant with medications prior to admission, recently started on psych medications as well as levothyroxine, xarelto and metroprolol. Levothyroxine was increased from 25mcg to 100mcg on this admission, re-started on Metoprolol 50mg PO QD and Xarelto 20mg PO QD. -Echo 06/05/17: ASD 2.58cm, moderately depressed LV function with preserved EF, Right ventricle enlargement EKG on admission 08/12/17: NSR at rate 78bpm Physical exam: No acute distress, able to speak in full sentences, denies dizziness at this time Cardiac: normal S1 S2, no murmurs/rubs or gallops Abd: soft, nontender Ext: full range of motion, no calf tenderness -Orthostatic BP: laying down: 103/72 mmHg HR 118 bpm ; standing up BP 72/45 mmHg HR 114bpm -repeat EKG: A-fib with RVR at rate of 120 bpm -case discussed with Hospitalist Dr. Arizmendi Plan: Plan: -NS 1L bolus -Cardizem 60mg PO once, repeat EKG in 4 hrs -f/u BMP -if patient becomes symptomatic, will transfer to ER for acute management -consider cardiology consult -consider psych medications or uncontrolled hypothyroidism as contributors to transient dizziness - Date & Time Date: 08/15/17 Time: 16:40
[2017-08-15] MEDS ORDERED: Sodium Chloride 0.9% 1,000 ML IV SCH (17:15)
[2017-08-15 19:38] LABS: CALCIUM 9.9 mg/dL (8.4-10.2)
[2017-08-16] MEDS: Levothyroxine 100 MCG TAB PO SCH (05:43)
[2017-08-16 08:36] LABS: ALB/GLOB RATIO 1.1 (1.0-2.1); ALBUMIN 3.8 g/dL (3.5-5.0); ALT/SGPT 15 U/L (9-52); AST/SGOT 20 U/L (14-36); BLOOD UREA NITROGEN 32 mg/dl (7-17); GFR AFRICAN-AMERICAN > 60; GFR NON-AFRICAN AMERICAN 55
[2017-08-16] MEDS: Metoprolol Succinate 50 mg XL Tab PO SCH (09:22)
--- NOTE | 2017-08-16 10:05 | CARD ---
APPROVED REPORT EKG Measurement Heart [id number] <Conclusion> Atrial fibrillation with rapid ventricular response Abnormal ECG
--- NOTE | 2017-08-16 11:10 | CP.PCM.PN ---
<Giovanny Erwin - Last Filed: 08/16/17 11:57> Subjective - Date & Time of Evaluation Date of Evaluation: 08/16/17 Time of Evaluation: 11:10 - Subjective Subjective: pt seen and evaluated at bedside this morning. EKG done this morning shows Afib with RVR with rate in 130s. Pt asymptomatic. S/P 1L NS and 60mg Cardizem PO overnight. Pt reports feeling well overall but did not sleep at all last night. Approx 1 hr as per nursing staff. Afebrile. Denies dizziness/CP/SOB/FREEMAN. No other complaints. Objective - Vital Signs/Intake and Output Vital Signs (last 24 hours): Temp Pulse Resp BP Pulse Ox 97 F L 109 H 20 114/69 99 08/16/17 05:47 08/16/17 09:22 08/16/17 05:47 08/16/17 09:22 08/12/17 04:30 - Medications Medications: Current Medications Acetaminophen (Tylenol 325mg Tab) 650 mg PO Q4 PRN PRN Reason: Pain, moderate (4-7) Al Hydrox/Mg Hydrox/Simethicone (Maalox Plus 30 Ml) 30 ml PO Q4 PRN PRN Reason: Dyspepsia Last Admin: 08/14/17 06:43 Dose: 30 ml Benztropine Mesylate (Cogentin) 0.5 mg PO Q12 [facility] Last Admin: 08/16/17 09:22 Dose: 0.5 mg Bismuth Subsalicylate (Pepto-Bismol) 524 mg PO Q4 PRN PRN Reason: Diarrhea Diltiazem HCl (Cardizem) 60 mg PO BID [facility] Levothyroxine Sodium (Synthroid) 100 mcg PO DAILY@0630 [facility] Last Admin: 08/16/17 05:43 Dose: 100 mcg [place] Carbonate ([place] Carbonate 300mg) 300 mg PO Q12 [facility] Last Admin: 08/16/17 09:21 Dose: 300 mg Lorazepam (Ativan) 0.5 mg PO HS PRN PRN Reason: Insomnia Stop: 08/26/17 04:15 Lorazepam (Ativan) 0.5 mg PO Q6 PRN PRN Reason: Anixety/Agitation Stop: 08/26/17 04:15 Magnesium Hydroxide (Milk Of Magnesia) 30 ml PO HS PRN PRN Reason: Constipation Metoprolol Succinate (Toprol Xl) 50 mg PO DAILY [facility] Last Admin: 08/16/17 09:22 Dose: 50 mg Nicotine (Nicoderm Cq) 1 patch TD DAILY [facility] Last Admin: 08/16/17 09:22 Dose: Not Given Risperidone (Risperdal Tab) 1 mg PO Q12 [facility] Last Admin: 08/16/17 09:22 Dose: 1 mg Rivaroxaban (Xarelto) 20 mg PO DAILY [facility] PRN Reason: Protocol Last Admin: 08/16/17 09:21 Dose: 20 mg - Labs Labs: 08/14/17 05:46 08/16/17 06:00 - Constitutional Appears: Non-toxic, No Acute Distress - Head Exam Head Exam: ATRAUMATIC, NORMOCEPHALIC - Eye Exam Eye Exam: EOMI, Normal appearance Pupil Exam: NORMAL ACCOMODATION, PERRL - ENT Exam ENT Exam: Mucous Membranes Dry - Neck Exam Neck Exam: Full ROM, Normal Inspection - Respiratory Exam Respiratory Exam: Clear to Ausculation Bilateral, NORMAL BREATHING PATTERN - Cardiovascular Exam Cardiovascular Exam: Tachycardia, Irregular Rhythm. absent: Murmur - GI/Abdominal Exam GI & Abdominal Exam: Soft, Normal Bowel Sounds - Extremities Exam Extremities Exam: Full ROM, Normal Capillary Refill, Normal Inspection. absent : Pedal Edema, Tenderness - Neurological Exam Neurological Exam: Alert, Awake, CN II-XII Intact Assessment and Plan - Assessment and Plan (Free Text) Assessment: 71 y/o F with PMH of bipolar disorder, schizophrenia, hypothyroid and A-fib admitted to for evaluation and treatment of schizophrenia. Plan: 1)Bipolar schizophrenia - Currently managed as per psych 2) Hypothyroid - TSH 7.8, T4 1.00 - C/w levothyroxine 100mcg 3) A-fib with RVR -Asymptomatic -started Cardizem 60mg PO BID -Follow up EKG next day AM -cardiology consult appreciated -C/w home meds; Xarelto 20mg daily and Metoprolol Succinate 50mg PO daily 4) DVT prophylaxis - pt ambulating and Xarelto <Natalee Driscoll - Last Filed: 08/17/17 08:14> Objective - Vital Signs/Intake and Output Vital Signs (last 24 hours): Temp Pulse Resp BP Pulse Ox 98.1 F 66 18 106/69 99 08/17/17 06:00 08/17/17 06:00 08/17/17 06:00 08/17/17 06:00 08/12/17 04:30 - Medications Medications: Current Medications Acetaminophen (Tylenol 325mg Tab) 650 mg PO Q4 PRN PRN Reason: Pain, moderate (4-7) Al Hydrox/Mg Hydrox/Simethicone (Maalox Plus 30 Ml) 30 ml PO Q4 PRN PRN Reason: Dyspepsia Last Admin: 08/14/17 06:43 Dose: 30 ml Benztropine Mesylate (Cogentin) 0.5 mg PO Q12 [facility] Last Admin: 08/16/17 21:25 Dose: 0.5 mg Bismuth Subsalicylate (Pepto-Bismol) 524 mg PO Q4 PRN PRN Reason: Diarrhea Diltiazem HCl (Cardizem) 60 mg PO BID [facility] Last Admin: 08/16/17 21:25 Dose: 60 mg Levothyroxine Sodium (Synthroid) 100 mcg PO DAILY@0630 [facility] Last Admin: 08/16/17 05:43 Dose: 100 mcg [place] Carbonate ([place] Carbonate 300mg) 300 mg PO Q12 [facility] Last Admin: 08/16/17 21:25 Dose: 300 mg Lorazepam (Ativan) 0.5 mg PO HS PRN PRN Reason: Insomnia Stop: 08/26/17 04:15 Lorazepam (Ativan) 0.5 mg PO Q6 PRN PRN Reason: Anixety/Agitation Stop: 08/26/17 04:15 Magnesium Hydroxide (Milk Of Magnesia) 30 ml PO HS PRN PRN Reason: Constipation Metoprolol Succinate (Toprol Xl) 50 mg PO DAILY [facility] Last Admin: 08/16/17 09:22 Dose: 50 mg Nicotine (Nicoderm Cq) 1 patch TD DAILY [facility] Last Admin: 08/16/17 09:22 Dose: Not Given Risperidone (Risperdal Tab) 1 mg PO Q12 [facility] Last Admin: 08/16/17 21:25 Dose: 1 mg Rivaroxaban (Xarelto) 20 mg PO DAILY [facility] PRN Reason: Protocol Last Admin: 08/16/17 09:21 Dose: 20 mg - Labs Labs: 08/14/17 05:46 08/16/17 06:00 PT 14.2 Seconds (9.8-13.1) H D 08/17/17 07:50 INR 1.3 (0.9-1.2) H D 08/17/17 07:50 APTT 37.1 Seconds (25.6-37.1) 08/16/17 15:45 Attending/Attestation - Attestation I have personally seen and examined this patient.: Yes I have fully participated in the care of the patient.: Yes I have reviewed all pertinent clinical information, including history, physical exam and plan: Yes
--- NOTE | 2017-08-16 11:45 | PCM.PYCHPN ---
Psychiatric Progress Note - Psychiatric Progress Note Patient seen today, length of contact: chart reviewed case discussed Patient Chief Complaint: pt has remainedvery paranoid and withdrawn and need a lot of encouragment.pt is maintained on lithium and tolerating it well.pt has been in [facility] and followed by medicine and dr slaughter the superintendent mechanical will see the patient today. Medication Change: No Medical Record Reviewed: Yes Mental Status Examination - Cognitive Function Orientation: Person, Place, Situation, Time Memory: Impaired Attention: Poor Concentration: Poor Association: Loose Fund of Knowledge: Poor - Mood Mood: Neutral - Affect Affect: Broad - Formal Thought Process Formal Thought Process: Delusions (Believes she can predict the future), Paranoia, Loosening of associations - Homicidal Ideation Homicidal Ideation: No Goal/Treatment Plan - Goal/Treatment Plan Need for Continued Stay: Remain at risks for inpatient hospitalization, Discharge may exacerbated symptoms, Failed transitioning, Severe functional impairment Estimated Date of D/C: 08/18/17
[2017-08-16 16:49] LABS: INR 1.8 (0.9-1.2); PARTIAL THROMBOPLASTIN TIME 37.1 Seconds (25.6-37.1); PROTHROMBIN TIME 19.6 Seconds (9.8-13.1)
--- NOTE | 2017-08-17 01:05 | CON ---
DATE: 08/16/2017 REASON FOR CONSULTATION: Atrial fibrillation. HISTORY OF PRESENT ILLNESS: The patient is a 71 years old female who was admitted to geriatric psych unit because of paranoid ideation and withdrawal. The patient denied any suicidal ideation and denies any auditory hallucinations. The patient denies any chest pain. The patient was apparently diagnosed with atrial fibrillation by an outpatient disaster or damage control specialist and was placed on Xarelto 20 mg once a day that was documented on home medication list from 05/20/2017. The patient denies any history of stroke, heart attack or any coronary intervention in the past. The patient denies any chest pain at this time. The patient reports palpitation when she over exerts herself, but denies any dizziness or syncope. SOCIAL HISTORY: The patient is smoker. She is nondrinker. CURRENT MEDICATIONS: Ativan 0.5 mg at bedtime, Cardizem 60 mg orally twice a day, Cogentin 0.5 mg once a day, lithium 300 mg twice a day, milk of magnesia 30 mL, Nicoderm patch, Pepto-Bismol 524 mg p.o. every 4 hours p.r.n., Synthroid 100 mcg daily, Xarelto 20 mg once a day. REVIEW OF SYSTEMS: No nausea or vomiting. No fever or chills. No retrosternal chest pain. No dizziness or syncope. PHYSICAL EXAMINATION: GENERAL: The patient is an elderly female who does not appear to be in acute distress. VITAL SIGNS: Blood pressure 114/69, heart rate 109, temperature 97, respirations 20. HEENT: Normocephalic. CHEST: Clear. HEART: S1 and S2 regular. ABDOMEN: Soft. EXTREMITIES: No edema. No calf tenderness. LABORATORY DATA: Urine drug screen is negative. [place] is 0.4 and subsequently today 0.6, which is in therapeutic range. Alcohol level is less than 10. SMA-7 sodium 143, potassium 4.2, chloride 109, CO2 22, glucose 103, BUN 32, creatinine 1. Liver enzymes are within normal limit. TSH level is elevated 7.81, free T4 and total T4 are within normal limits. Hemoglobin and hematocrit 13.9 and 42.7. White count and platelet counts are within normal limits. RPR is nonreactive. EKG yesterday revealed atrial fibrillation with left ventricular response at the rate of 120. EKG on 08/12/2017 revealed sinus rhythm at the rate of 78. Echocardiographic study in 05/2017 revealed normal ejection fraction and trace mitral insufficiency. ASSESSMENT: 1. Paroxysmal atrial fibrillation. 2. Paranoid ideation. 3. Hypothyroidism. RECOMMENDATIONS: Continue current Ativan p.r.n. orally at 0.5 mg, continue Cogentin 0.5 mg every 12 hours, continue lithium 300 mg twice a day, Synthroid 100 mcg once a day, Toprol XL at 50 mg once a day, Xarelto 20 mg once a day. Obtain PT and INR. Edouard Merida MD
[2017-08-17 08:08] LABS: INR 1.3 (0.9-1.2); PROTHROMBIN TIME 14.2 Seconds (9.8-13.1)
[2017-08-17] MEDS: Levothyroxine 100 MCG TAB PO SCH (10:08)
--- NOTE | 2017-08-17 10:08 | PCM.PYCHPN ---
Psychiatric Progress Note - Psychiatric Progress Note Patient seen today, length of contact: Patient evaluated, case discussed with team, chart reviewed Patient Chief Complaint: "I'm good." Problems Identified/Issues Discussed: Patient continues to be grandiose. 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 She has less pressured speech and is redirectable. Pipe Coverer And Insulator's son and POA wants the patient to be on a long acting injectable due to her history of non-compliance with medications. Medication Change: Yes (Start Risperdal Consta 25 mg PO Q12 hr) Medical Record Reviewed: Yes Consults ordered or reviewed: Medicine consult Mental Status Examination - Cognitive Function Orientation: Person, Place, Situation, Time Memory: Impaired Attention: Poor Concentration: Poor Association: Loose Fund of Knowledge: Poor Decription of patient's judgement and insights: Chronic poor I/J - Mood Mood: Euphoric - Affect Affect: Broad - Formal Thought Process Formal Thought Process: Paranoia, Loosening of associations Psychotic Thoughts and Behaviors: +Paranoia - Suicidal Ideation Suicidal Ideation: No - Homicidal Ideation Homicidal Ideation: No Goal/Treatment Plan - Goal/Treatment Plan Need for Continued Stay: Remain at risks for inpatient hospitalization, Discharge may exacerbated symptoms, Failed transitioning, Severe functional impairment Progress Toward Problem(s) and Goals/Treatment Plan: Schizoaffective Disorder; Dementia -Individual and group therapy -Continue Risperdal 1 mg PO Q12, Cogentin 0.5 mg PO Q12 and [place] 300 mg PO Q12 -Start Risperdal Consta 25 mg IM [id number] -Medicine consult -Disposition planning Estimated Date of D/C: 08/21/17
[2017-08-17] MEDS: Metoprolol Succinate 50 mg XL Tab PO SCH (10:09)
[2017-08-17] MEDS ORDERED: risperiDONE Consta 25mg/2ml Syringe IM ONE (12:32)
--- NOTE | 2017-08-17 16:48 | CARD ---
APPROVED REPORT EKG Measurement Heart [id number] <Conclusion> Normal sinus rhythm Possible Left atrial enlargement Possible right atrial enlargement Borderline ECG
--- NOTE | 2017-08-17 19:31 | PN ---
DATE: 08/17/2017 SUBJECTIVE: No reported chest pain or dizziness. PHYSICAL EXAMINATION: VITAL SIGNS: Blood pressure 106/59, heart rate 66, temperature 98.1, and respirations 18. HEENT: Normocephalic. CHEST: Clear. HEART: S1, S2 regular. EXTREMITIES: No edema. LABORATORY DATA: RPR is nonreactive. Today's EKG revealed sinus rhythm at the rate of 65, possible left atrial enlargement. ASSESSMENT: 1. Paroxysmal atrial fibrillation. 2. Paranoid ideations. 3. Hypothyroidism. RECOMMENDATIONS: Case was discussed with a psychiatrist. The patient will be maintained on Synthroid and Xarelto. The patient will be also maintained on Cardene at 60 mg twice a day. The choice of oral versus long acting intramuscular injection of psychiatry medication will not affect the arrhythmia issue; however, the consideration was about the slight increase in INR, which was reported to be 1.8 yesterday and today it is 1.3 and in view of this new INR number, IM injections can be given safely. Edouard Merida MD
[2017-08-18] MEDS: Metoprolol Succinate 50 mg XL Tab PO SCH (08:35)
[2017-08-18] MEDS: Levothyroxine 100 MCG TAB PO SCH (08:35)
--- NOTE | 2017-08-18 10:20 | PCM.PYCHPN ---
Psychiatric Progress Note - Psychiatric Progress Note Patient seen today, length of contact: Patient evaluated, case discussed with team, chart reviewed Patient Chief Complaint: "I'm good." Problems Identified/Issues Discussed: Patient received Risperdal Consta 25 mg IM on 08/17/17. She continues to be grandiose and was discussing how she is God's child and has a special relationship with him. She is calmer, less labile, less paranoid and more redirectable. Denies AH/VH/depression/anxiety/SI/HI. Medication Change: No Medical Record Reviewed: Yes Consults ordered or reviewed: Medicine consult, Cardiology consult Mental Status Examination - Cognitive Function Orientation: Person, Place, Situation, Time Memory: Impaired Attention: Poor Concentration: Poor Association: Loose Fund of Knowledge: Poor Decription of patient's judgement and insights: Chronic poor I/J - Mood Mood: Euphoric - Affect Affect: Broad - Formal Thought Process Formal Thought Process: Paranoia, Loosening of associations Psychotic Thoughts and Behaviors: +mild Paranoia - Suicidal Ideation Suicidal Ideation: No - Homicidal Ideation Homicidal Ideation: No Goal/Treatment Plan - Goal/Treatment Plan Need for Continued Stay: Remain at risks for inpatient hospitalization, Discharge may exacerbated symptoms, Failed transitioning, Severe functional impairment Progress Toward Problem(s) and Goals/Treatment Plan: Schizoaffective Disorder; Dementia -Individual and group therapy -Continue Risperdal 1 mg PO Q12 (will stop after second Risperdal Consta dose), Cogentin 0.5 mg PO Q12 and [place] 300 mg PO Q12 -Risperdal Consta 25 mg IM [id number]; first dose given 08/17/17 -Medicine consult appreciated -Cardiology consult appreciated -Disposition planning Estimated Date of D/C: 08/21/17
--- NOTE | 2017-08-18 14:23 | CARD ---
APPROVED REPORT EKG Measurement Heart [id number] <Conclusion> Atrial fibrillation with rapid ventricular response Abnormal ECG
--- NOTE | 2017-08-18 14:28 | CARD ---
APPROVED REPORT EKG Measurement Heart [id number] <Conclusion> Atrial fibrillation with rapid ventricular response Abnormal ECG
--- NOTE | 2017-08-18 23:23 | PN ---
DATE: 08/18/2017 SUBJECTIVE: The patient denies chest pain, palpitation, or dizziness. She is ambulating in the psychiatry unit. PHYSICAL EXAMINATION: VITAL SIGNS: Blood pressure 150/70, heart rate 86, temperature 97.7, respirations 19. HEENT: Normocephalic. CHEST: Clear. HEART: S1 and S2 regular. ABDOMEN: Soft. EXTREMITIES: There is no edema. ASSESSMENT: 1. Paroxysmal atrial fibrillation. 2. Paranoid ideation. 3. Hypothyroidism. RECOMMENDATIONS: Continue Ativan 0.5 mg p.o. every 6 hours p.r.n. Continue Cardizem at 60 mg p.o. twice a day, Cogentin 0.5 mg twice a day, lithium 300 mg p.o. twice a day. Continue nicotine patch, Toprol-XL 60 mg once a day, Synthroid 100 mcg once a day, and Xarelto 20 mg orally daily. Edouard Merida MD
[2017-08-19] MEDS: Levothyroxine 100 MCG TAB PO SCH (06:08)
--- NOTE | 2017-08-19 07:14 | PCM.PYCHPN ---
Psychiatric Progress Note - Psychiatric Progress Note Patient seen today, length of contact: Patient evaluated, case discussed with team, chart reviewed Patient Chief Complaint: "I'm good." Problems Identified/Issues Discussed: No significant events overnight. She is improving clinically. She is calmer and more redirectable. Denies acute AH/VH/paranoia. She continues to be grandiose. No SI/HI. No adverse effects to medications reported. Medication Change: No Medical Record Reviewed: Yes Consults ordered or reviewed: Medicine consult, Cardiology consult Mental Status Examination - Cognitive Function Orientation: Person, Place, Situation, Time Memory: Impaired Attention: Poor Concentration: Poor Association: Loose Fund of Knowledge: Poor Decription of patient's judgement and insights: Chronic poor I/J - Mood Mood: Euphoric - Affect Affect: Broad - Formal Thought Process Formal Thought Process: Loosening of associations Psychotic Thoughts and Behaviors: +Grandiose - Suicidal Ideation Suicidal Ideation: No - Homicidal Ideation Homicidal Ideation: No Goal/Treatment Plan - Goal/Treatment Plan Need for Continued Stay: Remain at risks for inpatient hospitalization, Discharge may exacerbated symptoms, Failed transitioning, Severe functional impairment Progress Toward Problem(s) and Goals/Treatment Plan: Schizoaffective Disorder; Dementia -Individual and group therapy -Continue Risperdal 1 mg PO Q12 (will stop after second Risperdal Consta dose), Cogentin 0.5 mg PO Q12 and [place] 300 mg PO Q12 -Risperdal Consta 25 mg IM [id number]; first dose given 08/17/17 -Medicine consult appreciated -Cardiology consult appreciated -Disposition planning Estimated Date of D/C: 08/21/17
[2017-08-19] MEDS: Metoprolol Succinate 50 mg XL Tab PO SCH (08:21)
--- NOTE | 2017-08-19 17:52 | PN ---
DATE: 08/19/2017 SUBJECTIVE: The patient is ambulatory. Denies any palpitations, dizziness, or chest pain. PHYSICAL EXAMINATION: VITAL SIGNS: Blood pressure 122/78, heart rate 69, temperature 98.7, and respirations 18. HEENT: Normocephalic. NECK: No JVD. CHEST: Clear. HEART: S1, S2 regular. ABDOMEN: Soft. EXTREMITIES: No edema. ASSESSMENT: 1. Paroxysmal atrial fibrillation. 2. Paranoid ideations. 3. Hypothyroidism. RECOMMENDATIONS: Continue current Toprol XL at 50 mg once a day and Synthroid at 100 mcg once a day. Resume Xarelto 20 mg daily if there is no contraindication as I see from the medication list the Xarelto was discontinued. Edouard Merida MD
[2017-08-20] MEDS: Levothyroxine 100 MCG TAB PO SCH (05:57)
--- NOTE | 2017-08-20 08:30 | PCM.PYCHPN ---
Psychiatric Progress Note - Psychiatric Progress Note Patient seen today, length of contact: Patient evaluated, case discussed with team, chart reviewed Patient Chief Complaint: "I'm good." Problems Identified/Issues Discussed: No significant events overnight. Patient continues to improve clinically. She is calmer, more redirectable, more linear on conversation and less grandiose. Denies acute AH/VH/paranoia. No SI/HI. No adverse effects to medications reported. Medication Change: No Medical Record Reviewed: Yes Consults ordered or reviewed: Medicine consult, Cardiology consult Mental Status Examination - Cognitive Function Orientation: Person, Place, Situation, Time Memory: Impaired Attention: Poor Concentration: Poor Association: Loose Fund of Knowledge: Poor Decription of patient's judgement and insights: Chronic poor I/J - Mood Mood: Neutral - Affect Affect: Broad - Formal Thought Process Formal Thought Process: Loosening of associations Psychotic Thoughts and Behaviors: +Grandiose - Suicidal Ideation Suicidal Ideation: No - Homicidal Ideation Homicidal Ideation: No Goal/Treatment Plan - Goal/Treatment Plan Need for Continued Stay: Discharge may exacerbated symptoms, Severe functional impairment Progress Toward Problem(s) and Goals/Treatment Plan: Schizoaffective Disorder; Dementia; patient is improving clinically and will likely be discharged to home tomorrow under the care of her family -Individual and group therapy -Continue Risperdal 1 mg PO Q12 (will stop after second Risperdal Consta dose), Cogentin 0.5 mg PO Q12 and [place] 300 mg PO Q12 -Risperdal Consta 25 mg IM [id number]; first dose given 08/17/17 -Medicine consult appreciated -Cardiology consult appreciated -Disposition planning Estimated Date of D/C: 08/21/17
[2017-08-20] MEDS: Metoprolol Succinate 50 mg XL Tab PO SCH (08:32)
--- NOTE | 2017-08-20 11:00 | PCM.BM ---
Treatment Plan Problems - Problems identified on initial assessmt Delusions Date Initiated: 08/12/17 Time Initiated: 04:59 Assessment reference: NA Status: Active Medication nonadherence Date Initiated: 08/12/17 Time Initiated: 04:59 Assessment reference: NA Status: Active Treatment assets and liabiliti Patient Assests: adapts well, cooperative, good support system, cognitively intact Patient Liabilities: other (non compliant with medication) - Milieu Protocol Maintain good personal hygiene: daily Encourage regular showers, daily Remind patient to perform daily oral care, daily Assist patient to perform ADL's Conduct patient checks and document Observation sheet: Q15 minutes Maintain personal safety: every shift Educate patient to report safety concerns to staff, every shift Monitor environment for contraband/sharps Medication safety: Monitor for expected outcome, potential side effects: every shift, Assess barriers to learning: every shift, Assess readiness for medication education: every shift Milieu Narrative: Schizoaffective Disorder; Dementia; patient is improving clinically and will likely be discharged to home tomorrow under the care of her family -Individual and group therapy -Continue Risperdal 1 mg PO Q12 (will stop after second Risperdal Consta dose), Cogentin 0.5 mg PO Q12 and [place] 300 mg PO Q12 -Risperdal Consta 25 mg IM [id number]; first dose given 08/17/17 -Medicine consult appreciated -Cardiology consult appreciated -Disposition planning Family Contact Family involvement: Patient does not wish Family/SO involvement Family contact name: Domitila ([id number]) and Rome (son) Family contacted how many times per week?: 2 Family contact comment: Pt refusing to sign consent or provide verbal agreement for singer songwriter to speak to family. 08/12/2017 at 2:52pm - Outside Agency [facility] Care involvment: Information-sharing Agency contact name: Dr. Mukund MD Agency contact number: [phone] Discharge/Continuing Care - Education Needs Education Needs: Family Medication, Family Diagnosis/Disease Process, Family Coping Skills, Family Placement options, Family Community resources, Family Activities of Daily Living, Family Health Practices/Safety, Family Personal Hygiene/Grooming, Family Aftercare Safety Plan, Patient Medication, Patient Diagnosis/Disease Process, Patient Coping Skills, Patient Placement options, Patient Community resources, Patient Activities of Daily Living, Patient Health Practices/Safety, Patient Personal Hygiene/Grooming, Patient Aftercare Safety Plan - Discharge Discharge Criteria: Tolerates medication w/o severe side effects, Free of paranoid thoughts, Free of agitation, Normal sleep pattern, Ability to care for self, Reduction of target symptoms Discharge to:: Home - Additional Comments 08/12/17 12:02 Pt seen and discussed in team meeting. Reason for hospitalization reviewed. Pt reported that the police brought her to the hospital. Reportedly, pt was referred to the ED BY [facility]. Pt reported that her daughter, Alber is "my enemy" and she was the person who called the police. Pt also reported that she is in the hospital so that her family can have a alliance party in her apartment without her presence. Attending psychiatrist inquired about the the bizarre bx's in the community such as, inappropriately dressed, bringing strangers to her home (homeless) and paranoid thought process. Pt reported that she is not inappropriately dressed, but rather "dressing sexy and they like what they see." Pt reported medication non-compliance. Pt also reported that she believes she can predict the future. Pt's medications reviewed. Attending physician will re-start previous medications pt was prescribed in May 2017. Pt 's social and medical issues reviewed. Check Services Clerk inquired about consent for collateral review. Pt refused to sign release form for information to her grandson, son (R[place]), daughter in law (Domitila) and daughter (Alber). Pt stated "they my enemy." Check Services Clerk inquired about [id number], Domitila and pt stated "she has to do what the says." Check Services Clerk inquired about [facility] and pt reported "I give permission but no sign nothing." SW to continue to follow case. - Treatment Team Participation Patient/Family/SO Statement: Schizoaffective Disorder; Dementia; patient is improving clinically and will likely be discharged to home tomorrow under the care of her family -Individual and group therapy -Continue Risperdal 1 mg PO Q12 (will stop after second Risperdal Consta dose), Cogentin 0.5 mg PO Q12 and [place] 300 mg PO Q12 -Risperdal Consta 25 mg IM [id number]; first dose given 08/17/17 -Medicine consult appreciated -Cardiology consult appreciated -Disposition planning Discussed with Family/SO: No Was Patient/Family/SO present at Treatment Team Meeting: Yes Treatment Plan Review Patient participation: Yes Family/SO/Caregiver participation: No Additional Comments: Pt seen and discussed in team meeting. Pt's progress and bx on the unit reviewed and discussed. Pt is less manic and more re-directable. Pt is compliant with medications and long acting injectable, Risperdal Consta. Pt's sleep is improving. Pt is less irritable and agitated on the unit. Pt continues to express grandiose thoughts stating that she is a doctor and has power to heal. Pt informed of tentative discharge scheduled for tomorrow and pt is agreeable. Check Services Clerk reviewed after care referrals and plan for treatment. Pt verbalized agreement to [facility] services and to [facility] however, for one day a week only. Pt also reported that she is scheduled to meet with Dr. Mukund MD at [facility] tomorrow, August 21 and if she does not go she will be dropped from her services. Pt reported feeling "great, thank god." Pt was calm and cooperative. Pt answered team questions appropriately. - Problem Delusions Date Initiated: 08/12/17 Time Initiated: 04:59 Progress toward outcomes: improved Medication nonadherence Date Initiated: 08/12/17 Time Initiated: 04:59 Progress toward outcomes: improved - Discharge / Continuing Care Discharge to:: Home Behavioral Health Services: Outpatient therapy, Home health care, Adult day care Health Needs: Follow up care/test, Doctor appointments, Nutritional, Medications /Rx, Recreational/Social
[2017-08-20 11:45] LABS: HEMOGLOBIN 13.4 g/dL (12.0-16.0); MEAN CELL VOLUME 87.2 fl (81.0-99.0); MEAN CORPUSCULAR HEMOGLOBIN 29.2 pg (27.0-31.0); MEAN CORPUSCULAR HGB CONC 33.4 g/dL (33.0-37.0); RBC 4.6 Mil/uL (3.80-5.20); RED CELL DISTRIBUTION WIDTH 15.3 % (11.5-14.5); WHITE BLOOD COUNT 7.5 K/uL (4.8-10.8)
[2017-08-20 11:53] LABS: INR 1.3 (0.9-1.2); PROTHROMBIN TIME 13.9 Seconds (9.8-13.1)
[2017-08-20 12:16] LABS: ALB/GLOB RATIO 1.1 (1.0-2.1); ALBUMIN 3.9 g/dL (3.5-5.0); CALCIUM 9.7 mg/dL (8.4-10.2)
--- NOTE | 2017-08-20 14:47 | PN ---
DATE: 08/20/2017 SUBJECTIVE: The patient denies any palpitation, dizziness, chest pain, or shortness of breath. PHYSICAL EXAMINATION: VITAL SIGNS: Blood pressure 108/57, heart rate 67, temperature 97.3, respiration 19. HEENT: Normocephalic. CHEST: Clear. HEART: S1 and S2 regular. ABDOMEN: Soft. EXTREMITIES: No edema. ASSESSMENT: 1. Paroxysmal atrial fibrillation. 2. Paranoid ideation. 3. Hypothyroidism. RECOMMENDATIONS: Case was discussed with the nursing team. not listed on the medications yesterday because it needed renewal and it was renewed this morning at 20 mg daily. Continue Toprol XL at 50 mg once a day, Synthroid 100 mcg once a day beside psych meds, which include lithium, Ativan and Cogentin. Edouard Merida MD
[2017-08-21 06:07] VITALS: BP 115/65; PULSE 67; RESP 19; TEMP 97.9
[2017-08-21] MEDS: Levothyroxine 100 MCG TAB PO SCH (06:13)
[2017-08-21] MEDS: Metoprolol Succinate 50 mg XL Tab PO SCH (08:36)
--- NOTE | 2017-08-21 11:02 | PCM.PYCHDC ---
Mental Status Examination - Mental Status Examination Orientation: Person, Place, Situation Memory: Impaired Mood: Neutral Affect: Broad Speech: Appropriate Attention: Poor Concentration: Poor Association: Loose Fund of Knowledge: Poor Formal Thought Process: No Impairment Description of patient's judgement and insight: Chronic poor I/J Psychotic Thoughts and Behaviors: No AH/VH/paranoia/delusions Suicidal Ideation: No Current Homicidal Ideation?: No Discharge Summary - Discharge Note Reason for Hospitalization: HPI: 71 yo female w/ h/o schizoaffective disorder, B[facility] due to bizarre behavior in the context of non-compliance with medications. She believes that her grandson is beating her. Patient is currently minimizing symptoms, denies depression/anxiety/AH/VH. +Paranoia that people are trying to steal from her or harm her. +Believes she can see and predict the future. As per collateral obtained in the ER from the grandson "he stated he is scared to leave pt alone due to her leaving the stovetop burners on, bringing strange homeless people in, and is wandering around the streets sometimes naked." PPHx: Multiple past psychiatric admissions, last admitted to [facility] and discharged on Risperdal, Cogentin and Ixl. No compliant with outpatient treatment or medications. H/o suicide attempt in 1975 by overdose on alcohol and pills. PMHx: Hypothyroid, AFib, DVT (on Xarelto) PSurgHx: Cholecystectomy SHx: Lives w/ her son and [id number], +smoke 1.5 ppd, no drugs/etoh; unemployed ALL: PCN (rash) Laboratory Data: Abnormal Lab Results 08/20/17 08/20/17 08/20/17 11:40 11:40 11:40 WBC 7.5 RBC 4.60 Hgb 13.4 Hct 40.1 MCV 87.2 MCH 29.2 MCHC 33.4 RDW 15.3 H Plt Count 186 PT 13.9 H INR 1.3 H Sodium 140 Potassium 4.3 Chloride 105 Carbon Dioxide 23 Anion Gap 16 BUN 26 H Creatinine 1.1 Est GFR ( Amer) 60 Est GFR (Non-Af Amer) 49 Random Glucose 146 H Calcium 9.7 Total Bilirubin 0.9 AST 25 ALT 23 Alkaline Phosphatase 63 Total Protein 7.4 Albumin 3.9 Globulin 3.5 Albumin/Globulin Ratio 1.1 Li 0.6 on 08/16/17 Consultations:: List each consultation separately and include: 1. Reason for request. 2. Findings. 3. Follow-up Consultations: Medicine consult, Cardiology consult Summary of Hospital Course include:: 1. Description of specific treatment plan utilized for patients during their course of treatmen. 2. Summarize the time- course for resolution of acute symptoms and/or regressed behaviors. 3. Describe issues identified and worked on during hospitalization. 4. Describe medication utilized. 5. Describe medical problems identified and treated. 6. Reassessment of suicide risk Summary of Hospital Course: Patient was admitted to the geriatric psychiatry unit. Individual and group therapy were provided. Patient was stabilized on Risperdal Consta, Cogentin and Ixl. No current AH/VH/paranoia/delusions. Mood/affect neutral. Patient is psychiatrically stable for discharge at this time. - Diagnosis (1) Schizoaffective disorder Current Visit: Yes Status: Chronic (2) Dementia Current Visit: No Status: Chronic - Final Diagnosis (DSM 5) Condition upon Discharge: STABLE DSM 5: Schizoaffective Disorder; Dementia Disposition: HOME/ ROUTINE Follow-up Treatment Plan: Schizoaffective Disorder; Dementia -Individual and group therapy -Continue Risperdal 1 mg PO Q12 (will stop after second Risperdal Consta dose), Cogentin 0.5 mg PO Q12 and Ixl 300 mg PO Q12 -Risperdal Consta 25 mg IM [id number]; first dose given 08/17/17 -Medicine consult appreciated -Cardiology consult appreciated Prescriptions/Medication Reconciliation: Benztropine [Cogentin] 0.5 mg PO Q12 #60 tab diltiaZEM [Cardizem] 60 mg PO BID #60 tab Levothyroxine [Synthroid] 100 mcg PO DAILY@0630 #30 tab Ixl Carbonate [Ixl Carbonate 300MG] 300 mg PO Q12 #60 cap Metoprolol Succinate XL [Toprol XL] 50 mg PO DAILY #30 tab risperiDONE [RisperDAL Tab] 1 mg PO Q12 #28 tab Risperidone [RisperDAL Consta] 25 mg IM Q2W #1 syr Rivaroxaban [Xarelto] 20 mg PO QD5 #7 tab - Smoking Cessation Smoking Cessation Medication prescribed: Yes Reason for not providing: Prescribed during admission; pt declined outpatient prescription - Antipsychotic Medications Pt discharged on 2 or more routine antipsychotic medications: No
== END 2017-08-21 10:50 | disposition home or self-care (01) | DRG 885 ==
LOC: H.ER 01:30 → H.ERHOLD 02:39 → H.STEP 04:07
PROVIDERS: ADMIT Psychiatry & Neurology Psychiatry; ATTEND Psychiatry & Neurology Psychiatry
PROC: GZHZZZZ Group Psychotherapy (ICD-10-PCS; principal; 2017-08-12)
PROC: GZ58ZZZ Individual Psychotherapy, Cognitive-Behavioral (ICD-10-PCS; 2017-08-12)
DX: F25.0 Schizoaffective disorder, bipolar type (principal); R45.851 Suicidal ideations; I48.1 Persistent atrial fibrillation; F03.90 Unspecified dementia, unspecified severity, without behavioral disturbance, psychotic disturbance, mood disturbance, and anxiety; G89.29 Other chronic pain; I48.0 Paroxysmal atrial fibrillation; E03.9 Hypothyroidism, unspecified; F17.210 Nicotine dependence, cigarettes, uncomplicated; Z91.83 Wandering in diseases classified elsewhere; Z91.14 Patient's other noncompliance with medication regimen; Z91.19 Patient's noncompliance with other medical treatment and regimen; Z86.718 Personal history of other venous thrombosis and embolism; Z79.01 Long term (current) use of anticoagulants; Z88.0 Allergy status to penicillin

== ENCOUNTER 2017-11-30 11:03 | Emergency (ER) | payer MEDICARE, OTHER ==
[2017-11-30 11:04] VITALS: BMI 45.1
[2017-11-30 11:23] VITALS: RESP 16
[2017-11-30] MEDS ORDERED: RISPERDAL CONSTA 25 MG IM STA (11:39)
--- NOTE | 2017-11-30 12:18 | ED PDOC ---
HPI: General Adult Time Seen by Provider: 11/30/17 11:36 Chief Complaint (Nursing): Medical Clearance Chief Complaint (Provider): need for medication injection History Per: Other (Teodoro from [facility]) History/Exam Limitations: no limitations Recently: Treated By A Physician Additional Complaint(s): 71yo female with counselor from [facility] needs her monthly risperdal injected. Denies complaints. Teodoro from [facility] states does not need crisis eval, they did not have RN today to perform injection and patient at risk of deterioration without medication. Past Medical History Reviewed: Historical Data, Nursing Documentation, Vital Signs Vital Signs: Last Vital Signs Temp 97.1 F L 11/30/17 11:21 Pulse 61 11/30/17 11:21 Resp 16 11/30/17 11:21 BP 104/66 11/30/17 11:21 Pulse Ox 99 11/30/17 11:21 - Medical History PMH: Atrial Fibrillation, Bipolar Disorder, Cardia Arrhythmia (ATRIAL-FIB), Depression, Gall Bladder Disease, HTN, Hypercholesterolemia, Hypothyroidism, Schizophrenia Denies: Asthma, Diabetes, Hepatitis, Chronic Kidney Disease - Surgical History Surgical History: Cholecystectomy - Family History Family History: States: Unknown Family Hx - Immunization History Hx Tetanus Toxoid Vaccination: No Hx Influenza Vaccination: No Hx Pneumococcal Vaccination: No - Home Medications Home Medications: Ambulatory Orders Medication Instructions Recorded Atorvastatin [Lipitor] 20 mg PO HS 10/16/17 Levothyroxine [Synthroid] 100 mcg PO DAILY 10/16/17 Rivaroxaban [Xarelto] 20 mg PO DAILY 10/16/17 diltiaZEM [Cardizem] 30 mg PO BID 10/16/17 Benztropine [Cogentin] 0.5 mg PO BID 11/16/17 Daniel Carbonate [Daniel 300 mg PO BID 11/16/17 Carbonate 300MG] Risperidone [Risperdal] 1 mg PO DAILY 11/16/17 - Allergies Allergies/Adverse Reactions: Allergies Allergy/AdvReac Type Severity Reaction Status Date / Time Penicillins Allergy RASH Verified 11/16/17 11:13 Review of Systems Cardiovascular: Negative for: Chest Pain Respiratory: Negative for: Shortness of Breath Psych: Negative for: Suicidal ideation Physical Exam - Reviewed Nursing Documentation Reviewed: Yes Vital Signs Reviewed: Yes - Physical Exam Appears: Positive for: Well, Non-toxic Head Exam: Positive for: ATRAUMATIC Neurologic/Psych: Positive for: Gait (stable) - ECG O2 Sat by Pulse Oximetry: 99 Medical Decision Making Medical Decision Making: risperdal injection completed by RN DC from ED Disposition - Clinical Impression Clinical Impression: Medication administered - Patient ED Disposition Is Patient to be Admitted: No - Disposition Referrals: [facility] [Outside] Disposition Time: 12:18 Condition: STABLE Additional Instructions: Followup with your counselor and doctor as directed. Instructions: General (DC) Forms: [id number] (Greenlandic)
[2017-11-30 12:24] VITALS: BP 120/70; PULSE 76; TEMP 98; O2SAT 98
== END 2017-11-30 12:23 | disposition home or self-care (01) ==
LOC: H.ER 11:03
DX: Z51.81 Encounter for therapeutic drug level monitoring (principal)